=== PATIENT | female | born 1980 | race African-American/Black ===

== ENCOUNTER 2022-08-22 10:03 | Inpatient (IN) ==
[2022-08-22] MEDS ORDERED: GI COCKTAIL ED USE PO ONE ×2 (10:55→15:52)
--- NOTE | 2022-08-22 10:58 | Emergency Department Note ---
Impression & Plan Choledocholithiasis, Transaminitis, Elevated bilirubin ED Provider Note NAME: SHERMAN DAVIDSON AGE: 41 SEX: F : 1980 ARRIVES VIA: Walk-In INFORMANT: Patient ED PROVIDER(S): Madi Toussaint DO CHIEF COMPLAINT: Epigastric abdominal pain HPI: Patient is a 41-year-old female who presents to the ER for epigastric abdominal pain associated with nausea and vomiting. This has been going on for the past 10 days. She notes when her reflux is really bad she vomits. When she eats she will vomit. She denies any chest pain or shortness of breath. No dysuria, urgency, or frequency. No other exacerbating or remitting factors. PAST MEDICAL HISTORY:See Below PAST SURGICAL HISTORY:See Below FAMILY HISTORY:See Below SOCIAL HISTORY:See Below HOME MEDICATIONS:See Below ALLERGIES:See Below VITALS:See Below PHYSICAL EXAMINATION: GENERAL: Sitting up in bed, alert, well appearing, well nourished, no distress, non-toxic EYE EXAM: normal conjunctiva. OROPHARYNX: no exudate, no erythema, lips, buccal mucosa, and tongue normal and mucous membranes are moist NECK: supple, no nuchal rigidity, no adenopathy, non-tender LUNGS: Clear to auscultation. Normal chest wall mechanics HEART: no murmurs, S1 normal and S2 normal ABDOMEN: abdomen soft, TTP in RUQ, normo-active bowel sounds, no masses, no rebound or guarding. UPPER EXTREMITIES: upper extremities are grossly normal. LOWER EXTREMITIES: No pitting edema. NEURO EXAM: Normal sensorium, cranial nerves II-XII grossly intact, normal speech, no gross weakness of arms, no gross weakness of legs. MEDICAL DECISION MAKING: Patient is a 41-year-old female who presents ER for epigastric abdominal pain rating to the right. Associate with nausea vomiting with eating. IV was established blood work was obtained. She was tender on exam. Labs show no significant leukocytosis and mild anemia 11.2. BMP was unremarkable. LFTs with a transaminitis with an ALT of 190 and AST of 67. T. bili at 1.3. Lipase was normal. Ultrasound was obtained and showed mild intra and extrahepatic biliary ductal dilation with a CBD of 1 cm and cholelithiasis and gallbladder wall thickening. With these findings I recommended admission to the hospitalist. Patient declined. Discussed the risk and benefits and she declined following in formed refusal of care. Discussed with Jolynn Glasgow from [facility] gastroenterology. She discussed with Dr. Puentes. They would be able to take her to the OR tomorrow for an EDG but again the patient declined. She was agreeable to following up as an outpatient. She notes that she cannot stay as s he has a total of 5 children and no one to watch them. She was agreeable to getting IV antibiotics and was given 2 g of Rocephin here. She was discharged with Cipro and Flagyl. External records were reviewed which showed a CBD previously of 4 mm in epic. Gastroenterology will contact her as an outpatient try to get her in as an outpatient for an EGD. If she changes her mind at any point she will return to the ED. She was discharged following informed refusal of care due to lack of childcare. Triage Nursing notes reviewed. Limited review of prior medical records performed Vital Signs: reviewed and remarkable for no significant abnormalities Differential diagnosis: Differential diagnoses includes but is not limited to gastritis, peptic ulcer disease, GERD, gallbladder disease, pancreatitis, small bowel obstruction, appendicitis, diverticulitis, hernia, urinary tract infection, torsion, perforation, trauma, infectious. ER treatment provided: See below Diagnostics interpreted by me include EKG and cardiac monitoring as listed below: -ECG: none -Laboratory studies:Interpreted by me as stated above in MDM and shown below. Imaging studies: Xrays: As interpreted by me:none CTs show: none US: Shows thickening of the gallbladder wall and cholelithiasis and dilation of the CBD as described above Consultation(s): Discussed with gastroenterology as described above. Also discussed with care managers and hospitalist initially in regards to admission and patient declined Procedures:none Critical Care: None Past Med/Surg History Social History Feels Safe at Home: Yes Allergies Allergies Allergy/AdvReac Type Severity Reaction Status Date / Time No Known Allergies Allergy Unverified 08/22/22 16:03 Home Meds Home Medications Medication Instructions Recorded Confirmed famotidine 20 mg tablet 20 mg PO BID 08/22/22 08/22/22 Previous Rx's Medication Instructions Recorded ciprofloxacin HCl 500 mg tablet 500 mg PO Q12H #20 tabs 08/22/22 (Cipro) metronidazole 500 mg tablet 500 mg PO TID #30 tabs 08/22/22 ondansetron 4 mg disintegrating 4 mg PO Q8H PRN nausea and 08/22/22 tablet vomiting 5 days #15 tabs Results & Data (ED) Vital Signs Vital Signs - 24 hr 08/22/22 10:06 Temperature 36.7 C Temperature Source Temporal Artery Scan Pulse Rate 80 Respiratory Rate 18 Blood Pressure 152/91 H Blood Pressure Mean 111 Pulse Oximetry 97 Sepsis Recent Fever Within 48 Hours No Sepsis New/Unexplained Change in Mental Status No Sepsis Action Taken by Nursing No Action Required Laboratory Data 08/22/22 11:35 08/22/22 11:35 Lab Results 08/22/22 08/22/22 Range/Units 11:35 11:35 WBC 5.04 (4.8-10.8) K/ul RBC 4.33 (4.20-5.40) M/uL Hgb 11.2 L (12.0-16.0) g/dl Hct 34.7 L (37.0-47.0) % MCV 80.1 (80.0-100.0) fL MCH 25.9 (25.0-34.0) pg MCHC 32.3 (32.0-36.0) g/dL RDW Std Deviation 46.3 (36.4-46.3) fL RDW Coeff of Preston 15.9 H (11.5-14.5) % Plt Count 305 (130-400) K/uL MPV 11.5 (9.4-12.4) fL Immature Gran % (Auto) 0.2 % Neut % (Auto) 51.0 % Lymph % (Auto) 35.3 % [place] % (Auto) 9.1 % Eos % (Auto) 3.8 % Baso % (Auto) 0.6 % Neut # (Auto) 2.57 (1.40-6.50) K/uL Lymph # (Auto) 1.78 (1.2-3.4) K/uL [place] # (Auto) 0.46 (0.11-0.59) K/uL Eos # (Auto) 0.19 (0-0.50) K/uL Baso # (Auto) 0.03 (0-0.2) K/uL Immature Gran # (Auto) 0.01 (0.01-0.20) K/uL Sodium 139 (136-145) mmol/L Potassium 3.7 (3.5-5.1) mmol/L Chloride 106 (98-107) mmol/L Carbon Dioxide 26 (21-32) mmol/L Anion Gap 7 (3-11) BUN 7 (6-23) mg/dl Creatinine 0.58 L (0.6-1.2) mg/dl Est Cr Clr Drug Dosing 156.4 ml/min Est GFR ( Amer) 130.8 ml/min Est GFR (Non-Af Amer) 112.9 ml/min BUN/Creatinine Ratio 12.1 (10-20) Glucose 95 (70-99(Fasting)) mg/dl Calcium 9.4 (8.5-10.1) mg/dl Total Bilirubin 1.3 H (0.2-1.0) mg/dl AST 64 H (13-39) U/L ALT 186 H (7-52) U/L Alkaline Phosphatase 297 H (34-104) U/L Total Protein 8.4 H (6.0-8.3) gm/dl Albumin 4.0 (3.4-5.0) gm/dl Globulin 4.4 H (2.5-4.0) gm/dl Albumin/Globulin Ratio 0.9 (0.9-2) Lipase 24 (11-82) U/L Administered Medications Discontinued Medications Al Hydrox/Mg Hydrox/Simethicone (Gi Cocktail Ed Use) 1 dose PO ONE ONE Stop: 08/22/22 10:56 Last Admin: 08/22/22 15:56 Dose: 1 dose Documented By: Al Hydrox/Mg Hydrox/Simethicone (Gi Cocktail Ed Use) Confirm Administered Dose 1 dose PO .STK-MED ONE Stop: 08/22/22 15:53 Last Admin: 08/22/22 15:56 Dose: Not Given Documented By: Imaging Data Radiologist's Impression: Gallbladder Ultrasound 08/22/22 10:55 US gallbladder CLINICAL HISTORY: Right upper quadrant abdominal pain. COMPARISON STUDY: No previous studies for comparison. FINDINGS: Liver parenchyma is slightly heterogeneous. No well-defined hepatic lesions are identified. There is mild intra and extra hepatic biliary ductal dilatation. The common bile duct measures 1 cm in caliber. No common bile duct calculi are identified by sonography. Pancreatic body is normal. Head and tail are partially obscured. Multiple gallstones within the gallbladder are noted. There is mild gallbladder wall thickening. No pericholecystic fluid is present. No sonographic Sage sign was elicited. IMPRESSION: 1. Mild intra and extrahepatic biliary ductal dilatation. Correlation with liver function tests is recommended. 2. Cholelithiasis and mild gallbladder wall thickening. No sonographic Sage sign. No convincing evidence for acute cholecystitis. If indicated, a hepatobiliary scan could be obtained. 3. Slight heterogeneity of the liver. ACT 112: Negative or not required by law. Electronically signed by: Ilan Curtis M.D. 08/22/2022 2:41 PM Discharge Plan Visit Data Chief Complaint: Abdominal Pain Stated Complaint: ABD PAIN ED Provider: Madi Toussaint Discharge Problem: Choledocholithiasis, Transaminitis, Elevated bilirubin Discharge Instructions Krames/Other Patient Handouts: ED Gallstones with Biliary Colic Activity Restrictions/Additional Instructions: Please follow up with your primary care doctor with in the next 24 hours. Any worsening of your symptoms, please return to the ED immediately. This includes any fevers greater than 100.4, worsening pain, chest pain, shortness breath, persistent nausea, vomiting, unable to eat or drink, or any other concerning signs or symptoms from your standpoint. You were found to have a blood pressure greater than 120 systolic over 90 diastolic. Due to the new Medicare guidelines, we are now recommending that you follow up with your primary care doctor in regards to this elevated blood pressure. We believe that you likely have a stone in the common bile duct causing dilation as well as elevation in your liver functions and bilirubin. This can easily get infected. You also have some inflammation of your gallbladder. We recommended admission for an ER PCP and possibly cholecystectomy. You declined. This can cause liver failure, disability and sepsis. If you change your mind at any point please return to the ER immediately for admission. Please take the antibiotics as prescribed. Again if you notice any fevers above 100.4, shaking chills, unable to eat or dri nk, yellow discoloring of your skin, eyes or under your tongue or change your mind at any point please return to the ER. Gastroenterology from [facility] will contact you hopefully tomorrow to set up an appointment for early next week. If you do not hear from them please call them first thing Friday morning if you do not return to the ER. Forms Stand Alone Forms: My [facility] Prescriptions Prescriptions: New metronidazole 500 mg tablet 500 mg PO TID Qty: 30 0RF ciprofloxacin HCl [Cipro] 500 mg tablet 500 mg PO Q12H Qty: 20 0RF ondansetron 4 mg tablet,disintegrating 4 mg PO Q8H PRN (Reason: nausea and vomiting) 5 Days Qty: 15 0RF No Action famotidine 20 mg Tablet 20 mg PO BID Referrals Referrals: Liliane Puentes DO [Physician] - PCP,NO [Physician] -
[2022-08-22 12:11] LABS: Basophils # (auto) 0.03 K/uL (0-0.2); Basophils % (auto) 0.6 %; Eosinophils # (auto) 0.19 K/uL (0-0.50); Eosinophils % (auto) 3.8 %; Hematocrit (blood only) 34.7 % (37.0-47.0); Hemoglobin 11.2 g/dl (12.0-16.0); Immature Granulocytes # (auto) 0.01 K/uL (0.01-0.20); Immature Granulocytes % (auto) 0.2 %; Lymphocytes # (auto) 1.78 K/uL (1.2-3.4); Lymphocytes % (auto) 35.3 %; Mean Corpuscular Hemoglobin 25.9 pg (25.0-34.0); Mean Corpuscular Hgb Conc 32.3 g/dL (32.0-36.0); Mean Corpuscular Volume 80.1 fL (80.0-100.0); Mean Platelet Volume 11.5 fL (9.4-12.4); Monocytes # (auto) 0.46 K/uL (0.11-0.59); Monocytes % (auto) 9.1 %; Neutrophils # (auto) 2.57 K/uL (1.40-6.50); Platelet Count 305 K/uL (130-400); RDW Coefficient of Variation 15.9 % (11.5-14.5); RDW Standard Deviation 46.3 fL (36.4-46.3); Red Blood Count 4.33 M/uL (4.20-5.40); White Blood Count 5.04 K/ul (4.8-10.8)
[2022-08-22 12:16] LABS: Albumin Globulin Ratio 0.9 (0.9-2); BUN Creatinine Ratio 12.1 (10-20); Bilirubin,Total 1.3 mg/dl (0.2-1.0); Calcium 9.4 mg/dl (8.5-10.1); Creatinine Clr Calc Pharmacy 156.4 ml/min; Est GFR (African American) 130.8 ml/min; Est GFR (Non-African American) 112.9 ml/min; Globulin 4.4 gm/dl (2.5-4.0); Potassium 3.7 mmol/L (3.5-5.1); Total Protein 8.4 gm/dl (6.0-8.3)
--- NOTE | 2022-08-22 14:43 | Ultrasound Report ---
US gallbladder CLINICAL HISTORY: Right upper quadrant abdominal pain. COMPARISON STUDY: No previous studies for comparison. FINDINGS: Liver parenchyma is slightly heterogeneous. No well-defined hepatic lesions are identified. There is mild intra and extra hepatic biliary ductal dilatation. The common bile duct measures 1 cm in caliber. No common bile duct calculi are identified by sonography. Pancreatic body is normal. Head and tail are partially obscured. Multiple gallstones within the gallbladder are noted. There is mild gallbladder wall thickening. No pericholecystic fluid is present. No sonographic Sage sign was jesus cited. IMPRESSION: 1. Mild intra and extrahepatic biliary ductal dilatation. Correlation with liver function tests is re commended. 2. Cholelithiasis and mild gallbladder wall thickening. No sonographic Sage sign. No convincing sanjeev dence for acute cholecystitis. If indicated, a hepatobiliary scan could be obtained. 3. Slight heterogeneity of the liver. ACT 112: Negative or not required by law. Electronically signed by: Ilan Curtis M.D. 08/22/2022 2:41 PM
[2022-08-22] MEDS ORDERED: cefTRIAXone SODIUM 2,000 MG/70 ML BAG IV STA (16:08)
--- NOTE | 2022-08-22 18:27 | Emergency Department Note ---
ED Visit Note This patient was seen by Dr. Toussaint, the patient was diagnosed with choledocholithiasis, the plan was for the patient to be admitted with GI and parks rgical consult. The patient reportedly had childcare issues not allowing her to be admitted. She did receive IV antibiotics. I was asked to get involved with the patient's care at 6:20 PM as the patient was able to find a land department head and now would like to be admitted. The case was discussed with the [facility] hospitalist who accept the patient for admission to Dr. Anderson Dispo changed to admit .
--- NOTE | 2022-08-22 18:28 | Communication Note ---
Date of Service: August 22, 2022 We were called by the ER concerning this 41 y/o female pt who presents with several days of nausea, vomiting, upper abd pain. Labs notable for elevated transaminases with AST 64, ALT 186, ALP 297, Tbili 1.3. She had no leukocytosis, normal PLT, lipase, stable chronic anemia with HGB 11.2, normal renal function, and electrolytes. She was afebrile and hemodynamically stable. US suggested cholelithiasis, with CBD of 1 cm and IHDD. Given her presentation this raises the concern for possible biliary stone disease. Recommendations were to admit the pt and we would anticipate arrange EUS/ERCP tomorrow. However, pt indicated she had several children at home to care for and no one to help her care for them in her absence, thus she was refusing admission on these grounds. Therefore will recommend that the pt be sent home on empiric ABX to cover biliary source, and we will look to arrange OP endoscopy likely next week in [place] as schedule permits. If the pt develops worsening symptoms, such as pain, fever, jaundice, etc - it was recommended she return to the ER for ongoing care before then. We will call her to make arrangements for OP endoscopy. Thank you for allowing us to participate in the care of this patient. I discussed this pt with my attending as well as the ER attending.
--- NOTE | 2022-08-22 18:54 | History & Physical Report ---
Date of Service August 22, 2022 Assessment & Plan (1) Choledocholithiasis: (2) Transaminitis: (3) Elevated bilirubin: (4) Anemia: (5) GERD (gastroesophageal reflux disease): Plan This is a 41-year-old -La[place] female who has significant past medical history of reflux who presents to ED secondary to abdominal pain, nausea and vomiting x1 week. Choledocholithiasis Transaminitis Hyperbilirubinemia US:Cholelithiasis and mild gallbladder wall thickening. Mild intra and extrahepatic biliary ductal dilatation CBD 1cm. AST 64, ALT 186, ALP 297, Tbili 1.3 afebrile, no leukocytosis Remain n.p.o. IV fluid As needed antiemetics and analgesia will cover with IV Zosyn for now Consult GI for EGD/EUS in a.m. Consult general surgery to determine if possibly needs cholecystectomy in future Anemia H&H 11.2 and 34.7 with normal indices Iron panel done as outpatient December 2021 revealed ferritin 58, TSAT 34, TIBC 363 and iron 124 Monitor H&H, recommend further work-up as outpatient GERD will place on IV Pepcid for now DVT PPX: SCDS Dispo: med/surg, NPO for EGD/EUS tomorrow FULL CODE PCP: PAUL Guadalupe Pt was seen and examined in collaboration with Dr. Anderson, please see addendum A total of 50 minutes were spent with greater than 50% of that time face to face with the patient, personally reviewing all current laboratories, imaging studies, past medication reconciliation, outpatient chart review, and discussion with specialists to collaborate care for the patient with attending. Please see attending documentation for corrections and/or additions. History of Present Illness Chief Complaint: Abdominal pain, nausea and vomiting x1 week Primary Care Provider: Levy Up MD This is a 41-year-old -Lao female who has significant past medical history of reflux who presents to ED secondary to abdominal pain, nausea and vomiting x1 week. Patient states over the last week she has had intermittent nausea and vomiting. She attributed this to her usual reflux however was much worse. She further complained of epigastric discomfort that radiated to her right upper quadrant. Pain would come and go, nothing made better or worse she has never experienced this before. She presented to ED today with her 2 children at bedside. She denies any recent fever, chills, sweats, lightheadedness, dizziness, chest pain, shortness breath, URI symptoms, hematemesis, diarrhea or melena. Her last bowel movement was 2 to 3 days ago. She denies any difficulty with urination. In ED patient was found to have a transaminitis with AST 64, ALT 186, ALP 297 and total bili of 1.3. She was afebrile and had no leukocytosis. Her lipase was WNL. She does have anemia at 11.2 and 34.7 with normal indices. Ultrasound suggested cholelithiasis with a CBD of 1 cm and I HDD which raise concern for possible choledocholithiasis. ED provider discussed with GI who recommended admission for EUS and ERCP. Initially patient declined due to having several children at home and unable to find childcare, but eventually she was able to find childcare and wished to be admitted. Allergies Allergy/AdvReac Type Severity Reaction Status Date / Time latex Allergy Rash Verified 08/23/22 01:17 Home Medications Medication Instructions Recorded Confirmed Type ciprofloxacin HCl 500 mg tablet 500 mg PO Q12H #20 tabs 08/22/22 Rx (Cipro) famotidine 20 mg tablet 20 mg PO BID 08/22/22 08/22/22 History metronidazole 500 mg tablet 500 mg PO TID #30 tabs 08/22/22 Rx ondansetron 4 mg disintegrating 4 mg PO Q8H PRN nausea and 08/22/22 Rx tablet vomiting 5 days #15 tabs Past Med/Surg History Medical History Anemia GERD (gastroesophageal reflux disease) Thyroid nodule following ENT, had bx, rec repeat in 6 month for US Surgical History Hx of section Family History Mother Diabetes Father Drug overdose Social History Smoking Status: Current every day smoker Tobacco Type: Cigarettes Cigarettes Per Day: 1/2 ppd; Hx Alcohol Use: No Hx Substance Use: No Preferred Language: Slovak Communication Ability: Effective Main [employer] Required: No Beliefs That Will Affect Care: None Current Living Situation: Family Current Living Situation Comment: lives with her two children Feels Safe at Home: Yes Review of Systems Review of Systems: All systems reviewed & are unremarkable except as noted in HPI & below Physical Exam Physical Exam: Please refer to Dr. Anderson addendum for physical exam findings. Results & Data Results & Data ([facility]) Vital Signs (Past 12 Hours) Vital Signs Temp Pulse Resp BP Pulse Ox 08/22/22 10:06 36.7 C 80 18 152/91 H 97 Diagnostic Findings Gallbladder Ultrasound 08/22/22 10:55 US gallbladder CLINICAL HISTORY: Right upper quadrant abdominal pain. COMPARISON STUDY: No previous studies for comparison. FINDINGS: Liver parenchyma is slightly heterogeneous. No well-defined hepatic lesions are identified. There is mild intra and extra hepatic biliary ductal dilatation. The common bile duct measures 1 cm in caliber. No common bile duct calculi are identified by sonography. Pancreatic body is normal. Head and tail are partially obscured. Multiple gallstones within the gallbladder are noted. There is mild gallbladder wall thickening. No pericholecystic fluid is present. No sonographic Sage sign was elicited. IMPRESSION: 1. Mild intra and extrahepatic biliary ductal dilatation. Correlation with liver function tests is recommended. 2. Cholelithiasis and mild gallbladder wall thickening. No sonographic Sage sign. No convincing evidence for acute cholecystitis. If indicated, a hepatobiliary scan could be obtained. 3. Slight heterogeneity of the liver. ACT 112: Negative or not required by law. Electronically signed by: Ilan Curtis M.D. 08/22/2022 2:41 PM Medications Administered Medication List Discontinued Medications Al Hydrox/Mg Hydrox/Simethicone (Gi Cocktail Ed Use) 1 dose PO ONE ONE Stop: 08/22/22 10:56 Last Admin: 08/22/22 15:56 Dose: 1 dose Documented By: HS Al Hydrox/Mg Hydrox/Simethicone (Gi Cocktail Ed Use) Confirm Administered Dose 1 dose PO .STK-MED ONE Stop: 08/22/22 15:53 Last Admin: 08/22/22 15:56 Dose: Not Given Documented By: HS Ceftriaxone Sodium (Rocephin) 2,000 mg in 70 mls @ 140 mls/hr IV NOW STA Stop: 08/22/22 16:37 Last Infusion: 08/22/22 17:23 Dose: 0 mls/hr Documented By: Admin: 08/22/22 16:30 Dose: 140 mls/hr Documented By: AB COVID-19 Results Results COVID-19 Adm Lab Results: RBC 4.33 M/uL (4.20-5.40) 08/22/22 WBC 5.04 K/ul (4.8-10.8) 08/22/22 Hgb 11.2 g/dl (12.0-16.0) L 08/22/22 Hct 34.7 % (37.0-47.0) L 08/22/22 Plt Count 305 K/uL (130-400) 08/22/22 Neutrophils (%) (Auto) 51.0 % 08/22/22 Lymphocytes (%) (Auto) 35.3 % 08/22/22 Monocytes # (Auto) 0.46 K/uL (0.11-0.59) 08/22/22 Eosinophils # (Auto) 0.19 K/uL (0-0.50) 08/22/22 Immature Granulocyte % (Auto) 0.2 % 08/22/22 Neutrophils # (Auto) 2.57 K/uL (1.40-6.50) 08/22/22 Lymphocytes # (Auto) 1.78 K/uL (1.2-3.4) 08/22/22 Monocytes # (Auto) 0.46 K/uL (0.11-0.59) 08/22/22 Eosinophils # (Auto) 0.19 K/uL (0-0.50) 08/22/22 Basophils # (Auto) 0.03 K/uL (0-0.2) 08/22/22 Immature Granulocyte # (Auto) 0.01 K/uL (0.01-0.20) 3 Na 139 mmol/L (136-145) 08/22/22 K 3.7 mmol/L (3.5-5.1) 08/22/22 Cl 106 mmol/L (98-107) 08/22/22 CO2 26 mmol/L (21-32) 08/22/22 Anion Gap 7 (3-11) 08/22/22 BUN 7 mg/dl (6-23) 08/22/22 Creatinine 0.58 mg/dl (0.6-1.2) L 08/22/22 BUN/Creatinine Ratio 12.1 (10-20) 08/22/22 Glucose Level 95 mg/dl (70-99(Fasting)) 08/22/22 Ca 9.4 mg/dl (8.5-10.1) 08/22/22 Total Bilirubin 1.3 mg/dl (0.2-1.0) H 08/22/22 AST/SGOT 64 U/L (13-39) H 08/22/22 ALT/SGPT 186 U/L (7-52) H 08/22/22 Alkaline Phosphatase 297 U/L (34-104) H 08/22/22 Total Protein 8.4 gm/dl (6.0-8.3) H 08/22/22 Albumin 4.0 gm/dl (3.4-5.0) 08/22/22 Globulin 4.4 gm/dl (2.5-4.0) H 08/22/22 Albumin/Globulin Ratio 0.9 (0.9-2) 08/22/22 SARS-CoV-2, RNA, NAAT NEGATIVE (NEGATIVE) 08/22/22 Chest X-Ray 08/22/22 Code Status & VTE Plan Code Status FULL CODE VTE Prophylaxis Plan VTE Prophylaxis will be ordered: Yes Supervising Physician Co-Signing Physician Notes Attending addendum: The patient was seen and examined in the emergency room She has only past medical history of GERD and has been complaining of right upper quadrant/epigastric discomfort for the last few days for the last few days She has not been able to eat or drink much for the same. Due to nausea and occasional vomiting There is no fever and no chills No chest pain, palpitation or shortness of breath On examination Sitting on a chair in the emergency room with moderate discomfort Afebrile and hemodynamically stable Chestclear to auscultate bilaterally HeartS1, S2 regular Abdomenmildly distended, soft, tender right upper quadrant, Sage sign was negative during examination, bowel sounds present Extremitiestrace edema bilateral Her admission labs, EKG and imaging studies reviewed Increased LFTs Hello main body how you probably Has dilatation of the biliary ducts with cholelithiasis without sonographic evidence of cholecystitis Likely has choledocholithiasis GI and surgery has been consulted and Zosyn has been started The patient will be kept n.p.o. Agree with assessment plan as outlined above by ADRIENNE Barnhart Dr
--- NOTE | 2022-08-22 19:32 | XRay Report ---
XR chest 1V portable HISTORY: Preop. Right upper quadrant pain. COMPARISON: None. FINDINGS: No pneumothorax. No pleural effusions. The lungs are clear. No evidence for pulmonary edema . The cardiac silhouette is top normal in size. This may be accentuated by the AP portable technique. No acute fractures identified. IMPRESSION: No acute process. ACT 112: Negative or not required by law. Electronically signed by: Simon Pitt M.D. 08/22/2022 7:30 PM
--- NOTE | 2022-08-22 20:14 | Surgery Consultation ---
Date of Consultation August 22, 2022 Assessment & Plan (1) Cholelithiasis: The patient is being admitted on the hospitalist service. Recommend proceeding as follows: Implement n.p.o. status Provide analgesics provide antiemetics Follow serial labs Continue antibiotics. The patient has received ceftriaxone thus far since arrival to the emergency department Provide IV fluid for hydration The patient's imaging and laboratories are concerning for possible choledocholithiasis. Therefore we recommend getting a gastroenterology consultation to see if they feel an MRCP or an ERCP is warranted. I did discuss the above plan with the patient and outlined with her that pending gastroenterology evaluation she may also be a candidate for cholecystectomy. We will await gastroenterology input and determination if any procedures will be performed and determine timing of cholecystectomy thereafter Supervising Physician Co-Signing Physician Notes Dr Marie- case discussed with Arturo Parker and studies reviewed agree with plan- likely lap ailyn at some point depending on other treatment plan History of Present Illness Reason for Consultation: Cholelithiasis History of Present Illness This is a 41-year-old female who presented to the [facility] emergency department secondary to symptomatology that has ongoing for 2 weeks. The patient notes that she has had a poor appetite along with nausea and vomiting. She also notes that she has had some epigastric and right upper quadr ant pain that is worse after eating. She denies any fevers, shakes, or chills. She notes that the pain does not radiate. She does note that the pain is somewhat alleviated after she vomits but will recur if she tries to eat again. She does not note any provocative factors other than eating. Patient notes that she has had very little in the way of oral intake over the past 5 days. As her symptomatology appears to be getting worse she did present to the emergency department. I asked the patient if she has had any prior surgeries and she had a in 2017. Since arrival to the hospital the patient has had labs and imaging which independent reviewed. A chest x-ray showed no evidence of pneumonia. A gallbladder ultrasound showed cholelithiasis with mild gallbladder wall thicke mayra. There is no overly convincing evidence of acute cholecystitis but the patient was noted to have biliary ductal dilatation. Labs include a CBC her white blood cell count and platelet count were normal. Her hemoglobin and hematocrit were 11.2 and 34.7 respectively. Chemistry profile showed sodium, potassium, and BUN were all normal. Her creatinine was nonelevated at 0.5. Patient was noted to have some elevation of her LFTs including a total bilirubin of 1.3, and AST of 64, ALT of 186, alkaline phosphatase of 297. Of note the patient's lipase was not elevated. An EKG was performed that showed sinus arrhythmia without any changes indicative of acute ischemia. At the time of my interview the patient was resting comfortably in bed and she was in no distress. Allergies Allergy/AdvReac Type Severity Reaction Status Date / Time No Known Allergies Allergy Unverified 08/22/22 16:03 Home Medications Medication Instructions Recorded Confirmed Type ciprofloxacin HCl 500 mg tablet 500 mg PO Q12H #20 tabs 08/22/22 Rx (Cipro) famotidine 20 mg tablet 20 mg PO BID 08/22/22 08/22/22 History metronidazole 500 mg tablet 500 mg PO TID #30 tabs 08/22/22 Rx ondansetron 4 mg disintegrating 4 mg PO Q8H PRN nausea and 08/22/22 Rx tablet vomiting 5 days #15 tabs Patient History Medical History Anemia GERD (gastroesophageal reflux disease) Thyroid nodule following ENT, had bx, rec repeat in 6 month for US Surgical History Hx of section Family History Mother Diabetes Father Drug overdose Social History Smoking Status: Current every day smoker Tobacco Type: Cigarettes Cigarettes Per Day: 10; Hx Alcohol Use: No Hx Substance Use: No Preferred Language: Moroccan Feels Safe at Home: Yes Review of Systems Constitutional: no fever and no chills Eyes: no diplopia Ear, Nose, Mouth, Throat: no ear pain Respiratory: no cough and no dyspnea Cardiovascular: no chest pain Gastrointestinal: as per Subjective / HPI Genitourinary: no dysuria Musculoskeletal: no back pain Integumentary: no rash Neurologic: no localized weakness Physical Exam Constitutional: WD/WN, vitals as above Eyes: + anicteric sclerae; no conjunctival abnormality ENMT: Ears: no hearing impairment and no external ear abnormality Mouth: no oropharynx abnormality Sublingual jaundice is absent Neck: trachea midline Respiratory: normal respiratory effort; no respiratory distress and no labored breathing Cardiovascular: Rate/Rhythm: regular rate and regular rhythm Vessels: dorsalis pedis pulses present and radial pulses present Gastrointestinal (Abdomen): Abdomen is soft, nonrigid, nondistended. There is no rebound tenderness or guarding. The patient did have pain with deep palpation in the epigastric area and right upper quadrant. Musculoskeletal: No calf tenderness Skin: no rashes Neurologic: moves all extremities Psychiatric: A+Ox3, euthymic affect Results & Data ([facility]) Vital Signs (Past 12 Hours) Vital Signs Temp Pulse Resp BP Pulse Ox 08/22/22 10:06 36.7 C 80 18 152/91 H 97 PG Care Time/CCT Total # of Minutes Spent Total Time Spent with Patient: Total time spent is greater than 50% in coordination of care (as documented) at patient's floor/unit and/or counseling patient: Coding Level of Care Code INP/OBS CONSULT LVL 5, 80 MIN Diagnoses Cholelithiasis K80.20
[2022-08-22 21:22] LABS: Appearance Urine Cloudy (Clear); Blood Urine 3+ (Negative); Color Urine Dark Yellow; Epithelial Cell Urine Auto >30 /lpf (0-5); Glucose Urine UA Negative (Negative); Ketones Urine 3+ (Negative); Leukocyte Esterase Urine Trace (Negative); Nitrite Urine Positive (Negative); Protein Urine 1+ (Negative); RBC Urine Automated 0-4 /hpf (0-4); Urobilinogen Urine Negative (Negative)
[2022-08-22 21:28] LABS: Bilirubin Urine 2+ (Negative)
[2022-08-22 21:32] LABS: Pregnancy Test, Serum Negative (Negative)
[2022-08-22 21:39] LABS: Mucus Urine Present (None Prsent)
[2022-08-22 21:40] LABS: Bacteria Urine Automated 1+ (Negative)
[2022-08-22] MEDS ORDERED: FAMOTIDINE 20 MG TAB PO SCH ×2 (22:25)
[2022-08-22] MEDS ORDERED: ACETAMINOPHEN 325 MG TAB PO PRN (22:25)
[2022-08-22] MEDS ORDERED: MAGNESIUM HYDROXIDE SUSP 30 ML UDC PO PRN (22:25)
[2022-08-22] MEDS ORDERED: POLYETHYLENE (MIRALAX) 17 GM PACK PO PRN (22:25)
[2022-08-22] MEDS ORDERED: oxyCODONE HCL IR 5 MG TAB (IMMEDIATE RELEASE) PO PRN (22:25)
[2022-08-22] MEDS ORDERED: ALUMINUM/MAGNESIUM SUSP 30 ML UDC PO PRN (22:25)
[2022-08-22] MEDS ORDERED: MoRPHine SULFATE 4 MG/ML 1 ML CARP\\VIAL IV PRN (22:25)
[2022-08-22] MEDS ORDERED: ONDANSETRON INJ 2 MG/ML 2 ML VIAL IV PRN (22:25)
[2022-08-22] MEDS ORDERED: PIPERACILLIN/TAZOBACTAM 4.5 GM in DEXTROSE 5% 100 ML IV ONE (22:30)
[2022-08-22] MEDS ORDERED: NSS + 20MEQ KCL 20 MEQ/1,000 ML BAG IV SCH (22:45)
[2022-08-22] MEDS: FAMOTIDINE 20 MG in SYRINGE 3 ML IV SCH (22:52)
[2022-08-23] MEDS: PIPERACILLIN/TAZOBACTAM 4.5 GM in DEXTROSE 5% 100 ML IV SCH ×3 (04:22→19:50)
--- NOTE | 2022-08-23 06:57 | Surgery Progress Note ---
Date of Service August 23, 2022 Assessment & Plan (1) Cholelithiasis: Plan: Dilated common bile duct Patient for GI evaluation possible ERCP At some point she will need a laparoscopic cholecystectomy Keep n.p.o. and on IV antibiotics for now We will finalize plan this a.m. Admission and Anticipated Discharge Date Admission Date: August 22, 2022 Subjective Patient's vital signs are stable She has had some mild pain and received some pain medication Review of Systems Review of Systems: All systems reviewed & are unremarkable except as noted in HPI & below Physical Exam Constitutional: well developed; no acute distress Eyes: + anicteric sclerae Respiratory: normal respiratory effort; no respiratory distress Cardiovascular: Rate/Rhythm: regular rate Gastrointestinal (Abdomen): Inspection/Auscultation: abdomen not distended Musculoskeletal: Head/Neck/Chest: head atraumatic Skin: no rashes, warm and dry Neurologic: awake Psychiatric: Orientation: alert Results & Data ([facility]) Vital Signs (Past 12 Hours) Vital Signs Temp Pulse Pulse Resp BP Pulse Ox O2 Del Method 08/22/22 22:45 Room Air 08/22/22 22:45 36.7 C 78 16 166/98 H 94 Room Air 08/22/22 22:00 63 18 132/92 97 Room Air 08/22/22 20:29 62 16 126/82 98 Room Air 08/22/22 19:58 70 16 137/101 H 99 Room Air PG Care Time/CCT Total # of Minutes Spent Total Time Spent with Patient: Total time spent is greater than 50% in coordination of care (as documented) at patient's floor/unit and/or counseling patient: Coding Level of Care Code 23930 SUB INP/OBS CARE 2/35MIN Diagnoses Cholelithiasis K80.20
[2022-08-23] MEDS: LACTATED RINGER'S 1,000 ML IV SCH ×3 (07:21→23:43)
[2022-08-23] MEDS: FAMOTIDINE 20 MG in SYRINGE 3 ML IV SCH ×2 (07:23→18:23)
--- NOTE | 2022-08-23 08:18 | Gastrointestinal Consultation ---
Date of Consultation August 23, 2022 Assessment & Plan (1) Cholelithiasis: (2) Transaminitis: (3) Dilated cbd, acquired: Plan This is a 41 y/o female with 1.5 weeks of worsening epigastric abd pain, n/v, found to have elevated LFTs, bilirubin, imaging suggestive of cholelithiasis, dilated CBD. Given her history, labs and imaging this is suspicious for underlying choledocholithiasis. On exam she is resting comfortably with a soft abd but has mild epigastric tenderness. - Keep NPO - Continue IV ABX - Continue IVF - Continue analgesia PRN - Continue antiemetics PRN - Trend LFTs - Appreciate general surgery consult to consider cholecystectomy - We will plan for ERCP today to evaluate for presence of choledocholithiasis and provide treatment as needed Thank you for allowing us to participate in the care of this patient. Please call with any acute changes, questions or concerns. Please see addendum below with additional recommendation from my supervising physician. Supervising Physician Co-Signing Physician Notes Saw and evaluated the patient, we were consulted for evaluation signs in the setting of epigastric discomfort. The patient did have imaging notable for cholelithiasis and a dilated common bile duct. She notes that she has had intermittent discomfort over 1.5 weeks. She denies having any fevers chills or sweats. The patient's prior surgical history is notable for hysterectomy but otherwise unremarkable. Physical examination no scleral icterus Right upper quadrant tenderness to palpation 41-year-old female presenting with abdominal pain, imaging is somewhat sugges tive of choledocholithiasis given the dilated common bile duct. We will proceed with upper endoscopy endoscopic ultrasound and likely ERCP for biliary decompression. This will then be followed by cholecystectomy with Dr. Marie. I discussed risks and benefits of the endoscopic procedures to include bleeding, infection, perforation, pain, failed biliary cannulation and need for follow-up studies. History of Present Illness Reason for Consultation: Choledocho Requesting Physician: Mariela Tay PA-C Attending Physician: Bin Cohen MD History of Present Illness This is a 41 y/o female with h/o GERD who presented to the ER last night for epigastric pain, n/v x 10 days that worsened. Labs significant for elevated tbili, transaminases and ALP, normal WBC of 5, stable HGB of 11.2, normal lipase. US ABD showed CBD of 1 cm, cholelithiasis with mild GB wall thickening, mild IHDD. It was offered to her to have admission and arrange ERCP today alejandra parrish pt initially refused stating she had to leave to care for her children. 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 Was put on IV ABX, fluids, and IV Pepcid, analgesia PRN. General surgery was contacted to consider cholecystectomy. Overnight pt remains afebrile. Pain is improved this AM but is there to a small extent. No GI output but she is passing flatus. She states pain began about 1.5 weeks ago; would be epigastric and burning - intermittent, not necessarily after eating but often would be postprandial along with nausea, vomiting. Appetite has been poor as a result and she really hasn't eaten much in 5 days; no real stool output either. Notes her urine has been dark since this started. The pain worsened and she came to the ER. Denies radiation of the pain to the back, no CP, SOB, hematemesis, melena, hematochezia, lazaro stools, jaundice, icterus, leg edema. No h/o RYGB. She smokes cigarettes. No ETOH or AC use. Uses NSAIDs sporadically if needed. Abd surg hx includes . Allergies Allergy/AdvReac Type Severity Reaction Status Date / Time latex Allergy Rash Verified 08/23/22 01:17 Home Medications Medication Instructions Recorded Confirmed Type ciprofloxacin HCl 500 mg tablet 500 mg PO Q12H #20 tabs 08/22/22 Rx (Cipro) famotidine 20 mg tablet 20 mg PO BID 08/22/22 08/22/22 History metronidazole 500 mg tablet 500 mg PO TID #30 tabs 08/22/22 Rx ondansetron 4 mg disintegrating 4 mg PO Q8H PRN nausea and 08/22/22 Rx tablet vomiting 5 days #15 tabs Patient History Medical History Anemia GERD (gastroesophageal reflux disease) Thyroid nodule following ENT, had bx, rec repeat in 6 month for US Surgical History Hx of section Family History Mother Diabetes Father Drug overdose Social History Smoking Status: Current every day smoker Tobacco Type: Cigarettes Cigarettes Per Day: 1/2 ppd; Hx Alcohol Use: No Hx Substance Use: No Preferred Language: Upper Sorbian Communication Ability: Effective Cardiac Cath Technologist Required: No Beliefs That Will Affect Care: None Current Living Situation: Family Current Living Situation Comment: lives with her two children Feels Safe at Home: Yes Assistive Devices: None Review of Systems Review of Systems: All systems reviewed & are unremarkable except as noted in HPI & below Physical Exam Constitutional: well developed, well nourished and comfortable; no acute distress Eyes: Sclera anicteric, no conjunctival injection ENMT: moist mucous membranes, no pallor Neck: trachea midline supple Respiratory: normal respiratory effort, lungs clear to auscultation Cardiovascular: RRR, no murmur, no edema Gastrointestinal (Abdomen): Inspection/Auscultation: abdomen normal to inspection and normal bowel sounds; abdomen not distended abd soft, mild TTP epigatric area, no rebound, guarding Skin: no rashes, warm and dry Neurologic: alert and oriented x 3, no obvious focal neuro deficit Psychiatric: normal mood and affect Results & Data ([facility]) Vital Signs (Past 12 Hours) Vital Signs Temp Pulse Pulse Resp BP Pulse Ox O2 Del Method 08/23/22 07:51 37.0 C 72 18 142/84 H 96 Room Air 08/22/22 22:45 Room Air 08/22/22 22:45 36.7 C 78 16 166/98 H 94 Room Air 08/22/22 22:00 63 18 132/92 97 Room Air 08/22/22 20:29 62 16 126/82 98 Room Air Laboratory Results 08/22/22 08/22/22 08/22/22 Range/Units 21:10 21:00 20:30 WBC (4.8-10.8) K/ul RBC (4.20-5.40) M/uL Hgb (12.0-16.0) g/dl Hct (37.0-47.0) % MCV (80.0-100.0) fL MCH (25.0-34.0) pg MCHC (32.0-36.0) g/dL RDW Std Deviation (36.4-46.3) fL RDW Coeff of [place] (11.5-14.5) % Plt Count (130-400) K/uL MPV (9.4-12.4) fL Immature Gran % (Auto) % Neut % (Auto) % Lymph % (Auto) % [place] % (Auto) % Eos % (Auto) % Baso % (Auto) % Neut # (Auto) (1.40-6.50) K/uL Lymph # (Auto) (1.2-3.4) K/uL [place] # (Auto) (0.11-0.59) K/uL Eos # (Auto) (0-0.50) K/uL Baso # (Auto) (0-0.2) K/uL Immature Gran # (Auto) (0.01-0.20) K/uL Sodium (136-145) mmol/L Potassium (3.5-5.1) mmol/L Chloride (98-107) mmol/L Carbon Dioxide (21-32) mmol/L Anion Gap (3-11) BUN (6-23) mg/dl Creatinine (0.6-1.2) mg/dl Est Cr Clr Drug Dosing ml/min Est GFR ( Amer) ml/min Est GFR (Non-Af Amer) ml/min BUN/Creatinine Ratio (10-20) Glucose (70-99(Fasting)) mg/dl Calcium (8.5-10.1) mg/dl Total Bilirubin (0.2-1.0) mg/dl AST (13-39) U/L ALT (7-52) U/L Alkaline Phosphatase (34-104) U/L Total Protein (6.0-8.3) gm/dl Albumin (3.4-5.0) gm/dl Globulin (2.5-4.0) gm/dl Albumin/Globulin Ratio (0.9-2) Lipase (11-82) U/L HCG, Qual Negative (Negative) Urine Color Dark Yellow Urine Appearance Cloudy A (Clear) Urine pH 6.0 (4.5-7.5) Ur Specific [place] 1.040 H (1.000-1.030) Urine Protein 1+ H (Negative) Urine Glucose (UA) Negative (Negative) Urine Ketones 3+ H (Negative) Urine Blood 3+ H (Negative) Urine Nitrite Positive A (Negative) Urine Bilirubin 2+ H (Negative) Urine Urobilinogen Negative (Negative) Ur Leukocyte Esterase Trace H (Negative) Urine WBC (Auto) 1-5 (0-5) /hpf Urine RBC (Auto) 0-4 (0-4) /hpf U Hyaline Cast (Auto) 1-5 (0-5) /lpf U Epithel Cells (Auto) >30 H (0-5) /lpf Urine Bacteria (Auto) 1+ H (Negative) Urine Mucus Present A (None Prsent) Urine Yeast Not Reportable SARS-CoV-2, RNA, NAAT NEGATIVE (NEGATIVE) 08/22/22 08/22/22 Range/Units 11:35 11:35 WBC 5.04 (4.8-10.8) K/ul RBC 4.33 (4.20-5.40) M/uL Hgb 11.2 L (12.0-16.0) g/dl Hct 34.7 L (37.0-47.0) % MCV 80.1 (80.0-100.0) fL MCH 25.9 (25.0-34.0) pg MCHC 32.3 (32.0-36.0) g/dL RDW Std Deviation 46.3 (36.4-46.3) fL RDW Coeff of [place] 15.9 H (11.5-14.5) % Plt Count 305 (130-400) K/uL MPV 11.5 (9.4-12.4) fL Immature Gran % (Auto) 0.2 % Neut % (Auto) 51.0 % Lymph % (Auto) 35.3 % [place] % (Auto) 9.1 % Eos % (Auto) 3.8 % Baso % (Auto) 0.6 % Neut # (Auto) 2.57 (1.40-6.50) K/uL Lymph # (Auto) 1.78 (1.2-3.4) K/uL [place] # (Auto) 0.46 (0.11-0.59) K/uL Eos # (Auto) 0.19 (0-0.50) K/uL Baso # (Auto) 0.03 (0-0.2) K/uL Immature Gran # (Auto) 0.01 (0.01-0.20) K/uL Sodium 139 (136-145) mmol/L Potassium 3.7 (3.5-5.1) mmol/L Chloride 106 (98-107) mmol/L Carbon Dioxide 26 (21-32) mmol/L Anion Gap 7 (3-11) BUN 7 (6-23) mg/dl Creatinine 0.58 L (0.6-1.2) mg/dl Est Cr Clr Drug Dosing 156.4 ml/min Est GFR ( Amer) 130.8 ml/min Est GFR (Non-Af Amer) 112.9 ml/min BUN/Creatinine Ratio 12.1 (10-20) Glucose 95 (70-99(Fasting)) mg/dl Calcium 9.4 (8.5-10.1) mg/dl Total Bilirubin 1.3 H (0.2-1.0) mg/dl AST 64 H (13-39) U/L ALT 186 H (7-52) U/L Alkaline Phosphatase 297 H (34-104) U/L Total Protein 8.4 H (6.0-8.3) gm/dl Albumin 4.0 (3.4-5.0) gm/dl Globulin 4.4 H (2.5-4.0) gm/dl Albumin/Globulin Ratio 0.9 (0.9-2) Lipase 24 (11-82) U/L HCG, Qual (Negative) Urine Color Urine Appearance (Clear) Urine pH (4.5-7.5) Ur Specific [place] (1.000-1.030) Urine Protein (Negative) Urine Glucose (UA) (Negative) Urine Ketones (Negative) Urine Blood (Negative) Urine Nitrite (Negative) Urine Bilirubin (Negative) Urine Urobilinogen (Negative) Ur Leukocyte Esterase (Negative) Urine WBC (Auto) (0-5) /hpf Urine RBC (Auto) (0-4) /hpf U Hyaline Cast (Auto) (0-5) /lpf U Epithel Cells (Auto) (0-5) /lpf Urine Bacteria (Auto) (Negative) Urine Mucus (None Prsent) Urine Yeast SARS-CoV-2, RNA, NAAT (NEGATIVE) Diagnostic Findings US Gallbladder: FINDINGS: Liver parenchyma is slightly heterogeneous. No well-defined hepatic lesions are identified. There is mild intra and extra hepatic biliary ductal dilatation. The common bile duct measures 1 cm in caliber. No common bile duct calculi are identified by sonography. Pancreatic body is normal. Head and tail are partially obscured. Multiple gallstones within the gallbladder are noted. There is mild gallbladder wall thickening. No pericholecystic fluid is present. No sonographic Sage sign was elicited. IMPRESSION: 1. Mild intra and extrahepatic biliary ductal dilatation. Correlation with liver function tests is recommended. 2. Cholelithiasis and mild gallbladder wall thickening. No sonographic Sage sign. No convincing evidence for acute cholecystitis. If indicated, a hepatobiliary scan could be obtained. 3. Slight heterogeneity of the liver. CXR: FINDINGS: No pneumothorax. No pleural effusions. The lungs are clear. No evidence for pulmonary edema. The cardiac silhouette is top normal in size. This may be accentuated by the AP portable technique. No acute fractures identified. IMPRESSION: No acute process.
--- NOTE | 2022-08-23 08:43 | Electrocardiogram Report ---
Test Reason : Blood Pressure : / mmHG Vent. Rate : 061 BPM Atrial Rate : 061 BPM P-R Int : 156 ms QRS Dur : 096 ms QT Int : 430 ms P-R-T Axes : 028 044 033 degrees QTc Int : 432 ms Poor data quality, interpretation may be adversely affected Normal sinus rhythm with sinus arrhythmia Normal ECG No previous ECGs available Confirmed by Bg Mon ([id number]) on 08/23/2022 8:42:53 AM Referred By: REFERRED SELF Confirmed By:Bg Mon
[2022-08-23 08:49] LABS: Basophils # (auto) 0.02 K/uL (0-0.2); Basophils % (auto) 0.5 %; Eosinophils # (auto) 0.15 K/uL (0-0.50); Eosinophils % (auto) 3.5 %; Hematocrit (blood only) 32.8 % (37.0-47.0); Hemoglobin 10.5 g/dl (12.0-16.0); Immature Granulocytes # (auto) 0.01 K/uL (0.01-0.20); Immature Granulocytes % (auto) 0.2 %; Lymphocytes % (auto) 34.6 %; Mean Corpuscular Hemoglobin 25.7 pg (25.0-34.0); Mean Corpuscular Volume 80.4 fL (80.0-100.0); Mean Platelet Volume 11.6 fL (9.4-12.4); Monocytes # (auto) 0.44 K/uL (0.11-0.59); Monocytes % (auto) 10.1 %; Neutrophils # (auto) 2.22 K/uL (1.40-6.50); Neutrophils % (auto) 51.1 %; Platelet Count 286 K/uL (130-400); RDW Coefficient of Variation 15.9 % (11.5-14.5); RDW Standard Deviation 46.5 fL (36.4-46.3); Red Blood Count 4.08 M/uL (4.20-5.40); White Blood Count 4.34 K/ul (4.8-10.8)
--- NOTE | 2022-08-23 11:36 | History & Physical Bridge Note ---
Date of Service August 23, 2022 History & Physical Bridge Note I have examined the patient, reviewed the History & Physical and in the interval since the performance of the History & Physical I have noted the following changes of clinical significance: no changes noted for laparoscopic cholecystectomy
--- NOTE | 2022-08-23 13:06 | Anesthesiology Consultation ---
Date of Service August 23, 2022 History Surgery Operation Date: 08/23/22 07:00 Proposed Procedures p Laparoscopic Cholecystectomy - Levy Marie MD, FACS s Endoscopic Retrograde Cholangiopancreato - Liliane Puentes, Height/Weight Height: 5 ft 4 in Weight: 115.1 kg Allergies Allergy/AdvReac Type Severity Reaction Status Date / Time latex Allergy Rash Verified 08/23/22 01:17 Medications Home Medications Medication Instructions Recorded Confirmed Last Taken ciprofloxacin HCl 500 mg tablet 500 mg PO Q12H #20 tabs 08/22/22 Unknown (Cipro) famotidine 20 mg tablet 20 mg PO BID 08/22/22 08/22/22 08/21/22 metronidazole 500 mg tablet 500 mg PO TID #30 tabs 08/22/22 Unknown ondansetron 4 mg disintegrating 4 mg PO Q8H PRN nausea and 08/22/22 Unknown tablet vomiting 5 days #15 tabs Active Medications Generic Name Dose Route Start Last Admin Trade Name Freq PRN Reason Stop Dose Admin Piperacillin Sod/Tazobactam 120 mls @ 30 mls/hr 08/23/22 04:00 08/23/22 11:36 Sod 4.5 gm/ Dextrose IV 09/02/22 03:59 30 mls/hr Q8H HANSEL Administration Protocol Lactated Ringer's 1,000 mls @ 125 mls/hr 08/23/22 06:45 08/23/22 07:21 Lr IV 09/22/22 06:44 125 mls/hr .Q8H HANSEL Administration Famotidine 20 mg/ Syringe 5 mls @ 2.5 mls/min 08/22/22 22:25 08/23/22 07:23 IV 09/21/22 22:24 2.5 mls/min Q12 HANSEL Administration NPO Date Last Intake of Fluids: 08/22/22 Time Last Intake of Fluids: 08:30 Date Last Intake of Solids: 08/22/22 Time Last Intake of Solids: 08:30 Past Medical History Medical History Anemia GERD (gastroesophageal reflux disease) Thyroid nodule following ENT, had bx, rec repeat in 6 month for US Past Family History Family History Mother Diabetes Father Drug overdose Past Surgical History Surgical History Hx of section Social History Smoking Status: Current every day smoker tobacco type: cigarettes Smoking cigarettes per day: 1/2 ppd Hx Alcohol Use: No Hx Substance Use: No Physical Exam Vital Signs Last Vital Signs Temp 37 C 08/23/22 12:34 Pulse 79 08/23/22 12:34 Resp 20 08/23/22 12:34 BP 152/96 H 08/23/22 12:34 Pulse Ox 99 08/23/22 12:34 O2 Del Method 08/23/22 12:34 Testing Laboratory Results 08/23/22 08:09 08/22/22 11:35 Urine Color Dark Yellow 08/22/22 21:10 Urine Appearance Cloudy (Clear) A 08/22/22 21:10 Urine pH 6.0 (4.5-7.5) 08/22/22 21:10 Ur Specific [place] 1.040 (1.000-1.030) H 08/22/22 21:10 Urine Protein 1+ (Negative) H 08/22/22 21:10 Urine Glucose (UA) Negative (Negative) 08/22/22 21:10 Urine Ketones 3+ (Negative) H 08/22/22 21:10 Urine Nitrite Positive (Negative) A 08/22/22 21:10 Ur Leukocyte Esterase Trace (Negative) H 08/22/22 21:10 Urine WBC (Auto) 1-5 /hpf (0-5) 08/22/22 21:10 Urine RBC (Auto) 0-4 /hpf (0-4) 08/22/22 21:10 U Hyaline Cast (Auto) 1-5 /lpf (0-5) 08/22/22 21:10 U Epithel Cells (Auto) >30 /lpf (0-5) H 08/22/22 21:10 Urine Bacteria (Auto) 1+ (Negative) H 08/22/22 21:10
[2022-08-23] MEDS ORDERED: ePHEDrine sulfate 50 MG/ML AMP IV PRN (13:11)
[2022-08-23] MEDS ORDERED: BUPIVACAINE 0.5 % 5 MG/1 ML MPF 30ML VIAL ONE (13:11)
[2022-08-23] MEDS ORDERED: ONDANSETRON INJ 2 MG/ML 2 ML VIAL IV PRN ×2 (13:11→17:14)
[2022-08-23] MEDS ORDERED: MEPERIDINE HCL 25 MG/ML CARP/VIAL IV PRN (13:11)
[2022-08-23] MEDS ORDERED: HYDROmorphone INJ 2 MG/ML SYR/VIAL IV PRN (13:11)
[2022-08-23] MEDS ORDERED: ATROPINE SULFATE 0.1 MG/ML 10ML SYR IV PRN (13:11)
[2022-08-23] MEDS ORDERED: PROMETHAZINE HCL 12.5 MG in SODIUM CHLORIDE 0.9% 50 ML IV PRN ×2 (13:11→17:14)
[2022-08-23] MEDS ORDERED: ROCURONIUM BROMIDE 10 MG/ML 5 ML VIAL IV ONE ×2 (13:12→15:01)
[2022-08-23] MEDS ORDERED: PROPOFOL IV EMULSION 10 MG/ML 20 ML VIAL IV ONE (13:12)
[2022-08-23] MEDS ORDERED: LIDOCAINE 2% MPF LOCAL 5 ML VIAL INFIL ONE (13:12)
[2022-08-23] MEDS ORDERED: fentaNYL citrate 100 MCG/2 ML VIAL ONE ×4 (13:12→15:21)
[2022-08-23] MEDS ORDERED: MIDAZOLAM HCL 1 MG/ML 2ML VIAL ONE (13:13)
[2022-08-23] MEDS ORDERED: ACETAMINOPHEN 1,000 MG/100 ML VIAL IV STA (13:19)
--- NOTE | 2022-08-23 13:58 | GI REPORT ---
Patient Name: Coral Aleman Procedure Date: 08/23/2022 1:49 PM Date of : 1980 Admit Type: Inpatient Age: 41 Gender: Female Attending MD: Liliane Puentes DO, Procedure: Upper GI endoscopy Providers: Liliane Puentes DO Referring MD: Bin Cohen Indications: Epigastric abdominal pain Medicines: General Anesthesia Complications: No immediate complications. Estimated blood loss: Minimal. Estimated Blood Loss: Estimated blood loss was minimal. Procedure: Pre-Anesthesia Assessment: - Prior to the procedure, a History and Physical was performed, and patient medications, allergies and sensitivities were reviewed. The patient's tolerance of previous anesthesia was reviewed. - The risks and benefits of the procedure and the sedation options and risks were discussed with the patient. All questions were answered and informed consent was obtained. - Patient identification and proposed procedure were verified prior to the procedure by the physician, the nurse and the shove up. The procedure was verified in the procedure room. - Pre-procedure physical examination revealed no contraindications to sedation. - ASA Grade Assessment: III - A patient with severe systemic disease. - After reviewing the risks and benefits, the patient was deemed in satisfactory condition to undergo the procedure. - The anesthesia plan was to use general anesthesia. - Immediately prior to administration of medications, the patient was re-assessed for adequacy to receive sedatives. - The heart rate, respiratory rate, oxygen saturations, blood pressure, adequacy of pulmonary ventilation, and response to care were monitored throughout the procedure. - The physical status of the patient was re-assessed after the procedure. After obtaining informed consent, the endoscope was passed under direct vision. Throughout the procedure, the patient's blood pressure, pulse, and oxygen saturations were monitored continuously. The Scope was introduced through the mouth, and advanced to the third part of duodenum. The upper GI endoscopy was accomplished without difficulty. The patient tolerated the procedure well. Findings: The examined esophagus was normal. The Z-line was regular and was found 36 cm from the incisors. The entire examined stomach was normal. The examined duodenum was normal. Impression: - Normal esophagus. - Z-line regular, 36 cm from the incisors. - Normal stomach. - Normal examined duodenum. - No specimens collected. Recommendation: - Perform an upper endoscopic ultrasound (UEUS) today. Liliane Puentes D.O. Liliane Puentes, 08/23/2022 1:58:18 PM This report has been signed electronically. Note Initiated On: 08/23/2022 1:49 PM Number of Addenda: 0 I attest to the content of the Intraoperative Record and orders documented therein, exceptions below {[id number]}
[2022-08-23] MEDS ORDERED: ONDANSETRON INJ 2 MG/ML 2 ML VIAL ONE (14:08)
[2022-08-23] MEDS ORDERED: DEXAMETHASONE SOD INJ 4 MG/ML VIAL ONE (14:08)
[2022-08-23] MEDS ORDERED: ePHEDrine sulfate 50 MG/ML AMP ONE (14:28)
--- NOTE | 2022-08-23 14:31 | GI REPORT ---
Patient Name: Coral Aleman Procedure Date: 08/23/2022 1:51 PM Date of : 1980 Admit Type: Inpatient Age: 41 Gender: Female Attending MD: Liliane Puentes DO, Procedure: Upper EUS Providers: Liliane Puentes DO Referring MD: Levy Borjas Indications: Elevated liver enzymes, Suspected choledocholithiasis Medicines: General Anesthesia Complications: No immediate complications. Estimated blood loss: Minimal. Estimated Blood Loss: Estimated blood loss was minimal. Procedure: Pre-Anesthesia Assessment: - Prior to the procedure, a History and Physical was performed, and patient medications, allergies and sensitivities were reviewed. The patient's tolerance of previous anesthesia was reviewed. - The risks and benefits of the procedure and the sedation options and risks were discussed with the patient. All questions were answered and informed consent was obtained. - Patient identification and proposed procedure were verified prior to the procedure by the physician, the nurse and the base filler. The procedure was verified in the procedure room. - Pre-procedure physical examination revealed no contraindications to sedation. - ASA Grade Assessment: III - A patient with severe systemic disease. - After reviewing the risks and benefits, the patient was deemed in satisfactory condition to undergo the procedure. - The anesthesia plan was to use general anesthesia. - Immediately prior to administration of medications, the patient was re-assessed for adequacy to receive sedatives. - The heart rate, respiratory rate, oxygen saturations, blood pressure, adequacy of pulmonary ventilation, and response to care were monitored throughout the procedure. - The physical status of the patient was re-assessed after the procedure. After obtaining informed consent, the endoscope was passed under direct vision. Throughout the procedure, the patient's blood pressure, pulse, and oxygen saturations were monitored continuously. The Scope was introduced through the mouth, and advanced to the second part of duodenum. The upper EUS was accomplished without difficulty. The patient tolerated the procedure well. Findings: ENDOSONOGRAPHIC FINDING: : There was no sign of significant endosonographic abnormality in the ampulla. No masses were identified. There was dilation in the common bile duct which measured up to 10 mm. Multiple stones were visualized endosonographically in the common bile duct. They were hyperechoic and characterized by shadowing. Multiple stones were visualized endosonographically in the gallbladder. They were hyperechoic. There was diffuse abnormal echotexture in the visualized portion of the liver. This was characterized by a hyperechoic appearance. There was no sign of significant endosonographic abnormality in the entire pancreas. No masses, the pancreatic duct was thin in caliber. There was no sign of significant endosonographic abnormality in the left adrenal gland. No adrenal gland enlargement was identified. One benign-appearing lymph node was visualized in the samantha hepatis region. It measured 12 mm by 18 mm in maximal cross-sectional diameter. The node was triangular, hypoechoic and had poorly defined margins. Impression: - There was no sign of significant pathology in the ampulla. - There was dilation in the common bile duct which measured up to 10 mm. - Multiple stones were visualized endosonographically in the common bile duct. - Multiple stones were visualized endosonographically in the gallbladder. - There was diffuse abnormal echotexture in the visualized portion of the liver. This was characterized by a hyperechoic appearance. - There was no sign of significant pathology in the entire pancreas. - Endosonographic images of the left adrenal gland were unremarkable. - One benign lymph node was visualized in the samantha hepatis region. - No specimens collected. Recommendation: - Perform an ERCP today. Liliane Puentes D.O. Liliane Puentes, 08/23/2022 2:31:00 PM This report has been signed electronically. Note Initiated On: 08/23/2022 1:51 PM Number of Addenda: 0 I attest to the content of the Intraoperative Record and orders documented therein, exceptions below {[id number]}
--- NOTE | 2022-08-23 14:35 | Post Operative Brief Note ---
Immediate Post Op Note v1 Date of Surgery August 23, 2022 Pre & Post Diagnosis Operation Date: 08/23/22 07:00 Pre-Op Diagnosis: CHOLEDOCHOLITHIASIS Post-Op Diagnosis: CHOLEDOCHOLITHIASIS I identified the patient and participated in the time-out.: Yes Procedure Operation Date: 08/23/22 07:00 Actual Procedures p Esophagogastroduodenoscopy - DO arik Elam Endoscopic Ultrasonography Upper - DO arik Elam Endoscopic Retrograde Cholangiopancreato with spincterotomy, dilation, balloon sweep, stent placement - Liliane Puentes DO Surgeon Liliane Puentes DO Online Education Manager none Estimated Blood Loss 0 Findings Consistent with Post-Op Diagnosis
--- NOTE | 2022-08-23 14:35 | GI REPORT ---
Patient Name: Coral Aleman Procedure Date: 08/23/2022 1:52 PM Date of : 1980 Admit Type: Inpatient Age: 41 Gender: Female Attending MD: Liliane Puentes DO, Procedure: ERCP Providers: Liliane Puentes DO Referring MD: Referred Self, Bin Contreras Indications: Abdominal pain of suspected biliary origin, Elevated liver enzymes Medicines: General Anesthesia Complications: No immediate complications. Estimated blood loss: Minimal. Estimated Blood Loss: Estimated blood loss was minimal. Procedure: Pre-Anesthesia Assessment: - Prior to the procedure, a History and Physical was performed, and patient medications, allergies and sensitivities were reviewed. The patient's tolerance of previous anesthesia was reviewed. - The risks and benefits of the procedure and the sedation options and risks were discussed with the patient. All questions were answered and informed consent was obtained. - Patient identification and proposed procedure were verified prior to the procedure by the physician, the nurse and the editorial specialist. The procedure was verified in the procedure room. - Pre-procedure physical examination revealed no contraindications to sedation. - ASA Grade Assessment: III - A patient with severe systemic disease. - After reviewing the risks and benefits, the patient was deemed in satisfactory condition to undergo the procedure. - The anesthesia plan was to use general anesthesia. - Immediately prior to administration of medications, the patient was re-assessed for adequacy to receive sedatives. - The heart rate, respiratory rate, oxygen saturations, blood pressure, adequacy of pulmonary ventilation, and response to care were monitored throughout the procedure. - The physical status of the patient was re-assessed after the procedure. After obtaining informed consent, the scope was passed under direct vision. Throughout the procedure, the patient's blood pressure, pulse, and oxygen saturations were monitored continuously. The Duodenoscope was introduced through the mouth, and advanced to the duodenum and used to inject contrast into the bile duct. The ERCP was accomplished without difficulty. The patient tolerated the procedure well. Findings: The jelly filter tender film was normal. The esophagus was successfully intubated under direct vision without detailed examination of the pharynx, larynx, and associated structures, and upper GI tract. The upper GI tract was grossly normal. The major papilla was normal. The bile duct was deeply cannulated with the short-nosed traction sphincterotome and guidewire. Contrast was injected. I personally interpreted the bile duct images. Contrast extended to the entire biliary tree. The main bile duct was moderately dilated. The largest diameter was 10 mm. The lower third of the main bile duct, middle third of the main bile duct and upper third of the main bile duct contained filling defect(s) thought to be a stone. Biliary sphincterotomy was made with a monofilament Fusion OMNI sphincterotome using ERBE electrocautery. There was no post-sphincterotomy bleeding. The lower third of the main bile duct was successfully dilated with a 10 mm balloon dilator. To discover objects, the biliary tree was swept with a 15 mm balloon starting at the bifurcation. Many (over 20) darkly pigmented stones were removed. No stones remained. One 10 Fr by 9 cm biliary stent with a single external flap and a single internal flap was placed 9 cm into the common bile duct. Bile flowed through the stent. The stent was in good position. The endoscope was withdrawn from the patient. Impression: - Choledocholithiasis was found. Complete removal was accomplished by biliary sphincterotomy and balloon extraction. - One biliary stent was placed into the common bile duct. Recommendation: - Avoid aspirin and nonsteroidal anti-inflammatory medicines for 5 days. - Repeat ERCP in 6- 8 weeks to remove stent. - Cholecystectomy per General Surgery Liliane Puentes D.O. Liliane Puentes DO 08/23/2022 2:34:29 PM This report has been signed electronically. Note Initiated On: 08/23/2022 1:52 PM Number of Addenda: 0 I attest to the content of the Intraoperative Record and orders documented therein, exceptions below {[id number]}
--- NOTE | 2022-08-23 14:36 | Communication Note ---
Date of Service: August 23, 2022 The patient underwent upper endoscopy and endoscopic ultrasound revealing numerous stones within her common bile duct. This was followed by ERCP during which time a biliary sphincterotomy was performed and removal of over 20 gallstones performed. A prophylactic biliary stent was placed. Recommendations Clear Liquid diet today Cholecystectomy per general surgery avoid nonsteroidals for 5 days please Repeat ERCP for biliary stent removal in 6 to 8 weeks. Please call with any questions
--- NOTE | 2022-08-23 15:08 | Fluoroscopy Report ---
[place] ERCP biliary ductal CLINICAL HISTORY: ERCP COMPARISON STUDY: Right upper quadrant ultrasound August 22, 2022. FLUOROSCOPY TIME: 47 seconds. EXPOSURE DOSE: 23.01 mGy FLUOROSCOPIC IMAGES: 8 FINDINGS: Fluoroscopy was provided during ERCP. The common bile duct was cannulated. Filling defects within the common bile duct reflect stones. Balloon sweep through the common duct was performed follo wed by stent placement. IMPRESSION: Fluoroscopy provided during ERCP with biliary stent placement. ACT 112: Negative or not required by law. Electronically signed by: Ilan Curtis M.D. 08/23/2022 3:07 PM
[2022-08-23] MEDS ORDERED: SUGAMMADEX SODIUM 200 MG/2 ML VIAL IV ONE (15:38)
[2022-08-23] MEDS ORDERED: KETOROLAC 30 MG/ML VIAL ONE (15:41)
[2022-08-23] MEDS ORDERED: ACETAMINOPHEN 1,000 MG/100 ML VIAL IV ONE (15:49)
--- NOTE | 2022-08-23 15:49 | Post Operative Brief Note ---
[facility] Immediate Post Op with CF Date of Surgery August 23, 2022 Pre & Post Diagnosis Operation Date: 08/23/22 07:00 Pre-Op Diagnosis: CHOLEDOCHOLITHIASIS Post-Op Diagnosis: CHOLEDOCHOLITHIASIS , severe chronic cholecystitis with adhesions I identified the patient and participated in the time-out.: Yes Procedure Operation Date: 08/23/22 07:00 Actual Procedures p Esophagogastroduodenoscopy - Liliane Puentes DO s Endoscopic Ultrasonography Upper - Liliane Puentes DO s Endoscopic Retrograde Cholangiopancreato with spincterotomy, dilation, balloon sweep, stent placement(Not Applicable) - Liliane Puentes DO p Laparoscopic Cholecystectomy(Not Applicable) - Levy Marie MD, FACS Lysis of adhesions Surgeon Levy Marie MD, FACS Climbing Guide darrell, Anahy Saldivar for lap ailyn Estimated Blood Loss 10 Findings Consistent with Post-Op Diagnosis Patient had a severely scarred gallbladder which was very sclerotic as well as the samantha hepatis Specimens Specimen Description: a) Gallbladder.
[2022-08-23] MEDS ORDERED: PROMETHAZINE HCL INJ 25 MG/ML 1 ML VIAL ONE (16:28)
[2022-08-23] MEDS ORDERED: SODIUM CHLORIDE 0.9% 50 ML BAG ONE (16:28)
[2022-08-23] MEDS ORDERED: PIPERACILLIN/TAZOBACTAM 3.375 GM in DEXTROSE 5% 100 ML IV SCH (17:14)
[2022-08-23] MEDS ORDERED: HYDROmorphone INJ 0.5 MG/0.5 ML SYR IV PRN (17:14)
[2022-08-23] MEDS ORDERED: ALUMINUM/MAGNESIUM SUSP 30 ML UDC PO PRN (17:26)
--- NOTE | 2022-08-23 17:52 | Hospitalist Progress Note ---
Date of Service August 23, 2022 Assessment & Plan (1) Choledocholithiasis: (2) Transaminitis: (3) Elevated bilirubin: (4) Anemia: (5) GERD (gastroesophageal reflux disease): Plan This is a 41-year-old -[place] female who has significant past medical history of reflux who presents to ED secondary to abdominal pain, nausea and vomiting x1 week. Choledocholithiasis Cholelithiasis US:Cholelithiasis and mild gallbladder wall thickening. Mild intra and extrahepatic biliary ductal dilatation CBD 1cm. AST 64, ALT 186, ALP 297, Tbili 1.3 s/p ERCP with removal of CBD Choledocholithiasis, Stent Placement 08/23 stable overall afebrile, no leukocytosis no NSAID, Aspirin x 5 days repeat ERCP 6-8 weeks for stent removal General Surgery on board- awaiting recommendation for possible inpatient cholecystectomy Anemia H&H 11.2 and 34.7 with normal indices Iron panel done as outpatient December 2021 revealed ferritin 58, TSAT 34, TIBC 363 and iron 124 Monitor H&H, recommend further work-up as outpatient Hg 11.2 --> 10.5 no signs of active bleeding GERD IV Pepcid for now DVT PPX: SCDS Dispo: anticipate d/c home when medically stable FULL CODE PCP: PAUL Guadalupe Admission and Anticipated Discharge Date Admission Date: August 22, 2022 Subjective ff up for cholelithiasis, choledocholithiasis, etc seen resting in bed, sitting up very drowsy s/p ERCP nods, answers with some phrases states she is having heartburn no nausea no chest pain, dyspnea, palpitations, dizziness no other symptoms Review of Systems Review of Systems: all noted and negative except for above Physical Exam Physical Exam: General- oriented x 3, not in distress, speaks in sentences with no effort or accessory muscle use Eyes- anicteric Neck- no JVD Lungs- clear breath sounds bilaterally, no rales/wheezes Heart- normal rate, regular rhythm; no murmurs Abdomen- normal bowel sounds, nondistended, soft, mild RUQ tenderness Extremities- no pretibial edema, no calf tenderness Neuro- alert, oriented x 3; no gross focal neurologic deficits Skin- warm & dry Results & Data Results & Data ([facility]) Vital Signs (Past 12 Hours) Vital Signs Temp Pulse Pulse Resp BP Pulse Ox O2 Del Method 08/23/22 17:30 36.8 C 72 18 145/83 H 95 Room Air 08/23/22 17:15 36.9 C 80 18 145/89 H 97 Room Air 08/23/22 17:05 36.7 C 59 L 14 145/87 H 100 Nasal Cannula 08/23/22 16:55 85 16 146/93 H 95 Nasal Cannula 08/23/22 16:45 80 14 155/84 H 97 Room Air 08/23/22 16:35 90 16 154/89 H 93 Room Air 08/23/22 16:25 73 22 141/80 H 100 Oxymask 08/23/22 16:15 78 14 139/86 98 Oxymask 08/23/22 16:08 36.3 C L 85 16 138/80 98 Oxymask 08/23/22 12:34 37 C 79 20 152/96 H 99 Room Air 08/23/22 11:27 36.5 C 66 17 142/86 H 94 Room Air 08/23/22 07:51 37.0 C 72 18 142/84 H 96 Room Air O2 Flow Rate 08/23/22 17:30 08/23/22 17:15 08/23/22 17:05 2 08/23/22 16:55 2 08/23/22 16:45 08/23/22 16:35 08/23/22 16:25 3 08/23/22 16:15 6 08/23/22 16:08 9 08/23/22 12:34 08/23/22 11:27 08/23/22 07:51 all noted and reviewed including below
--- NOTE | 2022-08-23 18:59 | Anesthesiology Progress Note ---
Date of Service August 23, 2022 Anesthesia Post Procedure Vital Signs Vital Signs: Temp Pulse Pulse Resp BP Pulse Ox O2 Del Method 08/23/22 17:59 71 16 141/84 H 94 Room Air 08/23/22 17:30 36.8 C 72 18 145/83 H 95 Room Air 08/23/22 17:15 36.9 C 80 18 145/89 H 97 Room Air 08/23/22 17:05 36.7 C 59 L 14 145/87 H 100 Nasal Cannula 08/23/22 16:55 85 16 146/93 H 95 Nasal Cannula 08/23/22 16:45 80 14 155/84 H 97 Room Air 08/23/22 16:35 90 16 154/89 H 93 Room Air 08/23/22 16:25 73 22 141/80 H 100 Oxymask 08/23/22 16:15 78 14 139/86 98 Oxymask 08/23/22 16:08 36.3 C L 85 16 138/80 98 Oxymask 08/23/22 12:34 37 C 79 20 152/96 H 99 Room Air 08/23/22 11:27 36.5 C 66 17 142/86 H 94 Room Air 08/23/22 07:51 37.0 C 72 18 142/84 H 96 Room Air 08/22/22 22:45 Room Air 08/22/22 22:45 36.7 C 78 16 166/98 H 94 Room Air 08/22/22 22:00 63 18 132/92 97 Room Air 08/22/22 20:29 62 16 126/82 98 Room Air 08/22/22 19:58 70 16 137/101 H 99 Room Air O2 Flow Rate 08/23/22 17:59 08/23/22 17:30 08/23/22 17:15 08/23/22 17:05 2 08/23/22 16:55 2 08/23/22 16:45 08/23/22 16:35 08/23/22 16:25 3 08/23/22 16:15 6 08/23/22 16:08 9 08/23/22 12:34 08/23/22 11:27 08/23/22 07:51 08/22/22 22:45 08/22/22 22:45 08/22/22 22:00 08/22/22 20:29 08/22/22 19:58 Pain Intensity Right Abdomen: Pain Intensity: 7 Transfer of Care Handoff Completed per policy Notes Mental Status: alert / awake / arousable and participated in evaluation Patient Amnestic to Procedure: Yes Nausea / Vomiting: adequately controlled Pain: adequately controlled Airway Patency, RR, SpO2: stable & adequate BP & HR: stable & adequate Hydration State: stable & adequate Anesthetic Complications: no major complications apparent
[2022-08-23] MEDS: oxyCODONE HCL IR 5 MG TAB (IMMEDIATE RELEASE) PO PRN (21:53)
[2022-08-23] MEDS: DOCUSATE SODIUM/SENNA 50/8.6MG TAB PO SCH (21:53)
[2022-08-24] MEDS: PIPERACILLIN/TAZOBACTAM 4.5 GM in DEXTROSE 5% 100 ML IV SCH ×2 (03:00→12:22)
[2022-08-24] MEDS: oxyCODONE HCL IR 5 MG TAB (IMMEDIATE RELEASE) PO PRN ×3 (06:23→20:30)
[2022-08-24] MEDS: FAMOTIDINE 20 MG in SYRINGE 3 ML IV SCH (06:26)
[2022-08-24] MEDS: LACTATED RINGER'S 1,000 ML IV SCH (06:34)
[2022-08-24] MEDS: DOCUSATE SODIUM/SENNA 50/8.6MG TAB PO SCH ×2 (08:40→20:31)
[2022-08-24] MEDS: HEPARIN SOD 5,000 UNIT/0.5 ML VIAL SQ SCH ×2 (08:40→20:31)
[2022-08-24 08:58] LABS: Basophils # (auto) 0.03 K/uL (0-0.2); Basophils % (auto) 0.4 %; Eosinophils # (auto) 0.01 K/uL (0-0.50); Eosinophils % (auto) 0.1 %; Hematocrit (blood only) 32.2 % (37.0-47.0); Hemoglobin 10.2 g/dl (12.0-16.0); Immature Granulocytes # (auto) 0.03 K/uL (0.01-0.20); Immature Granulocytes % (auto) 0.4 %; Lymphocytes # (auto) 1.76 K/uL (1.2-3.4); Lymphocytes % (auto) 23.3 %; Mean Corpuscular Hgb Conc 31.7 g/dL (32.0-36.0); Mean Corpuscular Volume 82.1 fL (80.0-100.0); Mean Platelet Volume 11.4 fL (9.4-12.4); Monocytes # (auto) 0.52 K/uL (0.11-0.59); Monocytes % (auto) 6.9 %; Neutrophils # (auto) 5.19 K/uL (1.40-6.50); Neutrophils % (auto) 68.9 %; Platelet Count 311 K/uL (130-400); RDW Coefficient of Variation 15.6 % (11.5-14.5); RDW Standard Deviation 47.1 fL (36.4-46.3); Red Blood Count 3.92 M/uL (4.20-5.40); White Blood Count 7.54 K/ul (4.8-10.8)
[2022-08-24 09:17] LABS: Albumin Globulin Ratio 0.9 (0.9-2); Albumin Level 3.4 gm/dl (3.4-5.0); BUN Creatinine Ratio 9.4 (10-20); Bilirubin,Total 0.7 mg/dl (0.2-1.0); Calcium 8.7 mg/dl (8.5-10.1); Creatinine Clr Calc Pharmacy 141.1 ml/min; Est GFR (African American) 126.7 ml/min; Est GFR (Non-African American) 109.3 ml/min; Globulin 3.9 gm/dl (2.5-4.0); Potassium 3.9 mmol/L (3.5-5.1); Total Protein 7.3 gm/dl (6.0-8.3)
--- NOTE | 2022-08-24 13:47 | Surgery Progress Note ---
Date of Service August 24, 2022 Assessment & Plan (1) Postoperative follow-up: Plan: Robotic-Assisted Laparoscopic Sigmoidectomy, POD 1 pt is doing fine, pt wants to go home tomorrow, continue treatment, advance diet, will F. /U Admission and Anticipated Discharge Date Admission Date: August 22, 2022 Supervising Physician Co-Signing Physician Notes Saw and evaluated the patient, we were consulted for evaluation signs in the setting of epigastric discomfort. The patient did have imaging notable for cholelithiasis and a dilated common bile duct. She notes that she has had intermittent discomfort over 1.5 weeks. She denies having any fevers chills or sweats. The patient's prior surgical history is notable for hysterectomy but otherwise unremarkable. Physical examination no scleral icterus Right upper quadrant tenderness to palpation 41-year-old female presenting with abdominal pain, imaging is somewhat suggestive of choledocholithiasis given the dilated common bile duct. We will proceed with upper endoscopy endoscopic ultrasound and likely ERCP for biliary decompression. This will then be followed by cholecystectomy with Dr. Marie. I discussed risks and benefits of the endoscopic procedures to include bleeding, infection, perforation, pain, failed biliary cannulation and need for follow-up studies. Subjective ff up for cholelithiasis, choledocholithiasis, etc seen resting in bed, sitting up very drowsy s/p ERCP nods, answers with some phrases states she is having heartburn no nausea no chest pain, dyspnea, palpitations, dizziness no other symptoms 08/24/2022 1:43 PM, DR. Ansari F/Y S/P ERCP, lap ailyn, POD 1 pt is doing fine, no significant abdominal pain, no fever, tolerated clear diet, Physical Exam Constitutional: WD/WN, vitals as above Eyes: PERRL, conjunctivae normal, anicteric sclerae Neck: trachea midline, no thyromegaly Respiratory: normal respiratory effort, lungs clear to auscultation Cardiovascular: RRR, no murmur, no edema Gastrointestinal (Abdomen): soft, mild tenderness at incision site, no rebound pain, no distend, all incision intact, no redness, BS +, Neurologic: patellar DTR's 2+ bilat, sensation intact Psychiatric: A+Ox3, euthymic affect Results & Data ([facility]) Vital Signs (Past 12 Hours) Vital Signs Temp Pulse Resp BP Pulse Ox O2 Del Method 08/24/22 07:32 36.4 C L 53 L 16 130/81 94 Room Air 08/24/22 03:00 36.4 C L 60 18 134/81 96 Room Air Laboratory Results Abnormal lab results 08/24/22 08/24/22 Range/Units 08:26 08:26 RBC 3.92 L (4.20-5.40) M/uL Hgb 10.2 L (12.0-16.0) g/dl Hct 32.2 L (37.0-47.0) % MCHC 31.7 L (32.0-36.0) g/dL RDW Std Deviation 47.1 H (36.4-46.3) fL RDW Coeff of Preston 15.6 H (11.5-14.5) % BUN/Creatinine Ratio 9.4 L (10-20) Glucose 115 H (70-99(Fasting)) mg/dl AST 91 H (13-39) U/L ALT 163 H (7-52) U/L Alkaline Phosphatase 252 H (34-104) U/L
[2022-08-24] MEDS: FAMOTIDINE 20 MG TAB PO SCH (20:31)
[2022-08-24] MEDS ORDERED: ONDANSETRON 4 MG OD TAB PO PRN (20:53)
[2022-08-24] MEDS ORDERED: SODIUM CHLORIDE 0.9% 1000ML 1,000 ML IV ONE (20:54)
[2022-08-25] MEDS: oxyCODONE HCL IR 5 MG TAB (IMMEDIATE RELEASE) PO PRN (05:55)
[2022-08-25] MEDS ORDERED: COUGH DROP (SUGAR FREE) LOZ 24 LOZ/1 BOX BUCCAL ONE (05:57)
[2022-08-25 06:40] LABS: Albumin Globulin Ratio 0.9 (0.9-2); Albumin Level 3.3 gm/dl (3.4-5.0); BUN Creatinine Ratio 12.1 (10-20); Bilirubin,Total 0.5 mg/dl (0.2-1.0); Calcium 8.5 mg/dl (8.5-10.1); Creatinine Clr Calc Pharmacy 136.8 ml/min; Est GFR (African American) 125.4 ml/min; Est GFR (Non-African American) 108.2 ml/min; Globulin 3.6 gm/dl (2.5-4.0); Potassium 3.9 mmol/L (3.5-5.1); Total Protein 6.9 gm/dl (6.0-8.3)
[2022-08-25] MEDS: FAMOTIDINE 20 MG TAB PO SCH ×2 (08:11→20:40)
[2022-08-25] MEDS: AMOXICILLIN/CLAVULANATE 875 MG TAB PO SCH ×2 (08:11→18:15)
[2022-08-25] MEDS: DOCUSATE SODIUM/SENNA 50/8.6MG TAB PO SCH ×2 (08:11→20:39)
[2022-08-25] MEDS: HEPARIN SOD 5,000 UNIT/0.5 ML VIAL SQ SCH ×2 (08:12→20:40)
[2022-08-25] MEDS ORDERED: FIRST - Mouthwash BLM 5 ML UDP PO ONE (11:58)
[2022-08-25] MEDS: ACETAMINOPHEN 325 MG TAB PO SCH ×2 (12:47→20:39)
--- NOTE | 2022-08-25 14:45 | Surgery Progress Note ---
Date of Service August 25, 2022 Assessment & Plan (1) Postoperative follow-up: Plan: Robotic-Assisted Laparoscopic Sigmoidectomy, POD 1 pt is doing fine, pt wants to go home tomorrow, continue treatment, advance diet, will F/U 08/25/2022 2:44PM Robotic-Assisted Laparoscopic Sigmoidectomy, POD 2 pt is doing fine, tolerated diet pt wants to go home tomorrow, Admission and Anticipated Discharge Date Admission Date: August 22, 2022 Supervising Physician Co-Signing Physician Notes Saw and evaluated the patient, we were consulted for evaluation signs in the setting of epigastric discomfort. The patient did have imaging notable for cholelithiasis and a dilated common bile duct. She notes that she has had in termittent discomfort over 1.5 weeks. She denies having any fevers chills or sweats. The patient's prior surgical history is notable for hysterectomy but otherwise unremarkable. Physical examination no scleral icterus Right upper quadrant tenderness to palpation 41-year-old female presenting with abdominal pain, imaging is somewhat suggestive of choledocholithiasis given the dilated common bile duct. We will proceed with upper endoscopy endoscopic ultrasound and likely ERCP for biliary decompression. This will then be followed by cholecystectomy with Dr. Marie. I discussed risks and benefits of the endoscopic procedures to include bleeding, infection, perforation, pain, failed biliary cannulation and need for follow-up studies. Subjective ff up for cholelithiasis, choledocholithiasis, etc seen resting in bed, sitting up very drowsy s/p ERCP nods, answers with some phrases states she is having heartburn no nausea no chest pain, dyspnea, palpitations, dizziness no other symptoms 08/24/2022 1:43 PM, DR. Ansari F/U S/P ERCP, lap ailyn, POD 1 pt is doing fine, no significant abdominal pain, no fever, tolerated clear diet, 08/25/2022 2:43 PM, DR. Ansari F/U S/P ERCP, lap ailyn, POD 2 pt is doing fine, mild periumbilical incision pain, no fever, tolerated clear diet, Physical Exam Constitutional: WD/WN, vitals as above Eyes: PERRL, conjunctivae normal, anicteric sclerae Neck: trachea midline, no thyromegaly Respiratory: normal respiratory effort, lungs clear to auscultation Cardiovascular: RRR, no murmur, no edema Gastrointestinal (Abdomen): soft, mild tenderness at incision sites, no rebound, all incisions intact, no redness, Neurologic: patellar DTR's 2+ bilat, sensation intact Psychiatric: A+Ox3, euthymic affect Results & Data ([facility]) Vital Signs (Past 12 Hours) Vital Signs Temp Pulse Resp BP Pulse Ox O2 Del Method 08/25/22 14:20 36.8 C 66 16 102/67 96 Room Air 08/25/22 07:49 36.5 C 70 16 107/72 94 Room Air Laboratory Results Abnormal lab results 08/25/22 Range/Units 06:01 Glucose 102 H (70-99(Fasting)) mg/dl AST 68 H (13-39) U/L ALT 144 H (7-52) U/L Alkaline Phosphatase 208 H (34-104) U/L Albumin 3.3 L (3.4-5.0) gm/dl
--- NOTE | 2022-08-25 14:55 | Hospitalist Progress Note ---
Date of Service August 25, 2022 delayed entry date of service 08/24/22 Assessment & Plan (1) Cholelithiasis: (2) Choledocholithiasis: Plan: (1) Choledocholithiasis: (2) Transaminitis: (3) Elevated bilirubin: (4) Anemia: (5) GERD (gastroesophageal reflux disease): Plan This is a 41-year-old -[place] female who has significant past medical history of reflux who presents to ED secondary to abdominal pain, nausea and vomiting x1 week. Choledocholithiasis Cholelithiasis US:Cholelithiasis and mild gallbladder wall thickening. Mild intra and extrahepatic biliary ductal dilatation CBD 1cm. AST 64, ALT 186, ALP 297, Tbili 1.3 s/p ERCP with removal of CBD Choledocholithiasis, Stent Placement 08/23 Remained stable, but still having significant right upper quadrant postoperative pain Continue pain control Advance diet per general surgery no NSAID, Aspirin x 5 days repeat ERCP 6-8 weeks for stent removal General Surgery on board- awaiting recommendation for possible inpatient cholecystectomy Anemia H&H 11.2 and 34.7 with normal indices Iron panel done as outpatient December 2021 revealed ferritin 58, TSAT 34, TIBC 363 and iron 124 Monitor H&H, recommend further work-up as outpatient Hg 11.2 --> 10.5 no signs of active bleeding GERD IV Pepcid for now DVT PPX:SCDS Dispo: anticipate d/c home when medically stable FULL CODE PCP: PAUL Guadalupe Admission and Anticipated Discharge Date Admission Date: August 22, 2022 Subjective Follow-up for choledocholithiasis, cholelithiasis, etc. Seen resting in bed, sleeping but easily awakened Not in distress but reports right upper and lower quadrant pain No nausea or vomiting No fevers or chills no chest pain, dyspnea, palpitations, dizziness Review of Systems Review of Systems: all noted and negative except for above Physical Exam Physical Exam: General- oriented x 3, not in distress, speaks in sentences with no effort or accessory muscle use Eyes- anicteric Neck- no JVD Lungs- clear BS bilaterally, no rales/wheezes Heart- normal rate, regular rhythm; no murmurs Abdomen- normal bowel sounds, nondistended, soft, positive right upper quadrant tenderness Extremities- no pretibial edema, no calf tenderness Neuro- alert, oriented x 3; no gross focal neurologic deficits Skin- warm & dry Results & Data Results & Data ([facility]) Vital Signs (Past 12 Hours) Vital Signs Temp Pulse Resp BP Pulse Ox O2 Del Method 08/25/22 14:20 36.8 C 66 16 102/67 96 Room Air 08/25/22 07:49 36.5 C 70 16 107/72 94 Room Air all noted and reviewed including below
--- NOTE | 2022-08-25 14:57 | Hospitalist Progress Note ---
Date of Service August 25, 2022 Assessment & Plan (1) Cholelithiasis: (2) Choledocholithiasis: Plan: (1) Choledocholithiasis: (2) Transaminitis: (3) Elevated bilirubin: (4) Anemia: (5) GERD (gastroesophageal reflux disease): Plan This is a 41-year-old -[place] female who has significant past medical history of reflux who presents to ED secondary to abdominal pain, nausea and vomiting x1 week. Choledocholithiasis Cholelithiasis US:Cholelithiasis and mild gallbladder wall thickening. Mild intra and extrahepatic biliary ductal dilatation CBD 1cm. AST 64, ALT 186, ALP 297, Tbili 1.3 s/p ERCP with removal of CBD Choledocholithiasis, Stent Placement / Still having pain today But tolerating diet well, positive BMs LFTs trending down gradually Continue pain control, declines IV medications at this point We will add heating pad, Tylenol scheduled Continue Augmentin p.o. twice daily no NSAID, Aspirin x 5 days repeat ERCP 6-8 weeks for stent removal General Surgery on board- awaiting recommendation for possible inpatient cholecystectomy Anemia H&H 11.2 and 34.7 with normal indices Iron panel done as outpatient December 2021 revealed ferritin 58, TSAT 34, TIBC 363 and iron 124 Monitor H&H, recommend further work-up as outpatient Hg 11.2 --> 10 no signs of active bleeding GERD Pepcid BID DVT PPX:SCDS Dispo: anticipate d/c home when medically stable FULL CODE PCP: PAUL Guadalupe Admission and Anticipated Discharge Date Admission Date: August 22, 2022 Subjective Follow-up for cholelithiasis, etc. Seen resting in bed, not in distress, sleeping but easily awakened States that she is still having pain in the right quadrants, about the same as yesterday Tolerating soft diet, no nausea or vomiting, positive BMs No fevers or chills No other new symptoms Review of Systems Review of Systems: all noted and negative except for above Physical Exam Physical Exam: General- oriented x 3, not in distress, speaks in sentences with no effort or accessory muscle use Eyes- anicteric Neck- no JVD Lungs- clear breath sounds bilaterally, no rales/wheezes Heart- normal rate, regular rhythm; no murmurs Abdomen- normal bowel sounds, nondistended, soft, positive mild to moderate tenderness on the lower quadrant Lap ailyn sites healing well Extremities- no pretibial edema, no calf tenderness Neuro- alert, oriented x 3; no gross focal neurologic deficits Skin- warm & dry Results & Data Results & Data ([facility]) Vital Signs (Past 12 Hours) Vital Signs Temp Pulse Resp BP Pulse Ox O2 Del Method 08/25/22 14:20 36.8 C 66 16 102/67 96 Room Air 08/25/22 07:49 36.5 C 70 16 107/72 94 Room Air all noted and reviewed including below
--- NOTE | 2022-08-26 06:29 | Surgery Progress Note ---
Date of Service August 26, 2022 Assessment & Plan (1) S/P laparoscopic cholecystectomy: Plan: On 08/23/2022 patient underwent ERCP and then immediately following that She underwent laparoscopic cholecystectomy-this showed a very severely scarred gallbladder consistent with severe chronic cholecystitis with adhesions Okay for discharge home from surgical standpoint Pain med and antibiotic written for and discharge Follow-up surgery 2 to 3 weeks Follow-up GI team as ordered Admission and Anticipated Discharge Date Admission Date: August 22, 2022 Results & Data ([facility]) Vital Signs (Past 12 Hours) Vital Signs Temp Pulse Resp BP Pulse Ox O2 Del Method 08/25/22 21:49 36.9 C 76 18 129/69 96 Room Air PG Care Time/CCT Total # of Minutes Spent Total Time Spent with Patient: Total time spent is greater than 50% in coordination of care (as documented) at patient's floor/unit and/or counseling patient: Coding Level of Care Code 89008 Post Operative Follow-Up Diagnoses S/P laparoscopic cholecystectomy Z90.49
--- NOTE | 2022-08-26 06:57 | Operative Report (OR) ---
DATE OF OPERATION: 08/23/2022. NAME OF OPERATION: Laparoscopic cholecystectomy with lysis of adhesions. This was a difficult opera tion. Please add difficult modifier. STAFF SURGEON: Levy Marie MD. PARTY PLAN SALESPERSON: Kym Saldivar PA-C. ANESTHESIA: General. DESCRIPTION OF PROCEDURE: The patient was brought in the operating room and placed on the operating table in supine position. She had undergone ERCP. She was in the supine position. Her abdomen was p repped and draped in the usual fashion. A 0.5% plain Marcaine was used to anesthetize all incisions. Incision was made above the umbilicus, carrying dissection down through significant adipose tissue to the fascia, placing a Veress needle producing pneumoperitoneum. Under visualization, three 5 mm p orts were placed, one cephalad and two laterally. Gallbladder was severely scarred with adhesions to the gallbladder. These were taken down and then the gallbladder observed. It was very sclerotic do wn into the samantha hepatis, very difficult to retract. I did have to make a small opening in the gall bladder to grasp it and then retracted the gallbladder, identifying the cystic duct and cystic artery . These were clipped and transected and then the gallbladder dissected away from the liver bed throu gh significant scar tissue, it was placed in an Endobag. After appropriate hemostasis and irrigation , the Endobag was removed through the umbilical site. I did have to enlarge the fascial defect to re move the gallbladder because of its size. At this point, the fascia was closed at the umbilicus usin g 0 PDS suture. All incisions closed using subcuticular 4-0 Monocryl with Dermabond. The patient wa s transferred to recovery room in stable condition. My assistant family teacher helped with prepping, draping, removal of the gallbladder and closure of the wounds. Job ID: [id number]
[2022-08-26] MEDS: oxyCODONE HCL IR 5 MG TAB (IMMEDIATE RELEASE) PO PRN ×2 (08:15→19:07)
[2022-08-26] MEDS: FAMOTIDINE 20 MG TAB PO SCH ×2 (08:15→20:40)
[2022-08-26] MEDS: HEPARIN SOD 5,000 UNIT/0.5 ML VIAL SQ SCH ×2 (08:15→20:40)
[2022-08-26] MEDS: DOCUSATE SODIUM/SENNA 50/8.6MG TAB PO SCH ×2 (08:15→20:40)
[2022-08-26] MEDS: ACETAMINOPHEN 325 MG TAB PO SCH ×3 (08:16→20:40)
[2022-08-26] MEDS: AMOXICILLIN/CLAVULANATE 875 MG TAB PO SCH ×2 (08:16→17:10)
--- NOTE | 2022-08-26 08:30 | Operative Report (OR) ---
DATE OF OPERATION: 08/23/2022. NAME OF OPERATION: Laparoscopic cholecystectomy with lysis of adhesions. PREOPERATIVE DIAGNOSIS: Acute cholecystitis. POSTOPERATIVE DIAGNOSIS: Acute cholecystitis with severe chronic cholecystitis and sclerosis with ad hesions. STAFF SURGEON: Levy Marie MD. REGIONAL INTERMODAL TRUCK DRIVER: Kym Saldivar PA-C. ANESTHESIA: General. DESCRIPTION OF PROCEDURE: The patient was brought in the operating room and placed on the operating table in supine position. Her abdomen was prepped and draped in the usual fashion. My title i instructional assistant hel ped with prepping, draping, removal of gallbladder, and closure of the wound. Incision was made abov e the umbilicus, carrying dissection down through significant adipose tissue to the fascia, placing a Veress needle, producing pneumoperitoneum. Three 5 mm ports were then placed after the 11 port pass ed. Under visualization, three 5 mm ports were placed, one cephalad and two laterally. There were a dhesions to the gallbladder. The gallbladder was severely sclerotic and scarred, consistent with sev ere chronic cholecystitis. I actually made a small opening in the upper part of the gallbladder to g rasp the gallbladder because it was so scarred. There was some fluid, which was aspirated. Dissecti on was then carried out at the samantha hepatis with some difficulty secondary to retraction, but the cy stic duct and cystic artery were identified. There was also sclerosis of the samantha hepatis. These w ere clipped and transected. The gallbladder was then dissected away from the liver bed and placed in an Endobag. After appropriate irrigation and hemostasis, the Endobag was removed through the umbili danish site. I had to enlarge the fascial defect because of the size of the gallbladder. Fascia closed at the umbilicus using 0 PDS sutures, skin was reapproximated using subcuticular 4-0 Monocryl and Awais mabond. The patient was transferred to recovery room in stable condition. Very difficult operation, . Job ID: [id number]
[2022-08-26 09:13] LABS: Albumin Level 3.6 gm/dl (3.4-5.0); BUN Creatinine Ratio 14.5 (10-20); Bilirubin,Total 0.5 mg/dl (0.2-1.0); Calcium 8.6 mg/dl (8.5-10.1); Creatinine Clr Calc Pharmacy 164.2 ml/min; Est GFR (African American) 133.1 ml/min; Est GFR (Non-African American) 114.9 ml/min; Globulin 3.5 gm/dl (2.5-4.0); Potassium 4.1 mmol/L (3.5-5.1); Total Protein 7.1 gm/dl (6.0-8.3)
--- NOTE | 2022-08-26 14:17 | Hospitalist Progress Note ---
Date of Service August 26, 2022 Assessment & Plan (1) Cholelithiasis: (2) Choledocholithiasis: Plan: (1) Choledocholithiasis: (2) Transaminitis: (3) Elevated bilirubin: (4) Anemia: (5) GERD (gastroesophageal reflux disease): Plan This is a 41-year-old -[place] female who has significant past medical history of reflux who presents to ED secondary to abdominal pain, nausea and vomiting x1 week. Choledocholithiasis Cholelithiasis US:Cholelithiasis and mild gallbladder wall thickening. Mild intra and extrahepatic biliary ductal dilatation CBD 1cm. AST 64, ALT 186, ALP 297, Tbili 1.3 s/p ERCP with removal of CBD Choledocholithiasis, Stent Placement 2/10 Still having pain today, improving but still 5/10 tolerating diet well, positive BMs LFTs trending down gradually Continue pain control, declines IV medications at this point heating pad, Tylenol scheduled Continue Augmentin p.o. twice daily no NSAID, Aspirin x 5 days repeat ERCP 6-8 weeks for stent removal Anemia H&H 11.2 and 34.7 with normal indices Iron panel done as outpatient December 2021 revealed ferritin 58, TSAT 34, TIBC 363 and iron 124 Monitor H&H, recommend further work-up as outpatient Hg 11.2 --> 10 no signs of active bleeding GERD Pepcid BID DVT PPX:SCDS Dispo: anticipate d/c home when medically stable FULL CODE PCP: PAUL Guadalupe Admission and Anticipated Discharge Date Admission Date: August 22, 2022 Subjective ff up for cholelithiasis, etc seen resting in bed, not in distress reports RUQ improving gradually, 5 from 10 no nausea/vomiting (+) BMs no fever/chills no other symptoms Review of Systems Review of Systems: all noted and negative except for above Physical Exam Physical Exam: General- oriented x 3, not in distress, speaks in sentences with no effort or accessory muscle use Eyes- anicteric Neck- no JVD Lungs- clear BS BL Heart- normal rate, regular rhythm; no murmurs Abdomen- normal bowel sounds, nondistended, soft, mild moderate RUQ tenderness Extremities- no pretibial edema, no calf tenderness Neuro- alert, oriented x 3; no gross focal neurologic deficits Skin- warm & dry Results & Data Results & Data ([facility]) Vital Signs (Past 12 Hours) Vital Signs Temp Pulse Pulse Resp BP Pulse Ox O2 Del Method 08/26/22 11:11 36.9 C 74 17 145/102 H 95 Room Air 08/26/22 07:46 36.8 C 62 17 139/81 96 Room Air 08/26/22 06:55 36.5 C 69 16 122/83 94 Room Air all noted and reviewed including below
[2022-08-27 09:08] LABS: Albumin Globulin Ratio 0.9 (0.9-2); Albumin Level 3.5 gm/dl (3.4-5.0); BUN Creatinine Ratio 17.5 (10-20); Bilirubin,Total 0.4 mg/dl (0.2-1.0); Calcium 8.9 mg/dl (8.5-10.1); Creatinine Clr Calc Pharmacy 158.4 ml/min; Est GFR (African American) 131.6 ml/min; Est GFR (Non-African American) 113.5 ml/min; Globulin 3.8 gm/dl (2.5-4.0); Total Protein 7.3 gm/dl (6.0-8.3)
[2022-08-27] MEDS: FAMOTIDINE 20 MG TAB PO SCH (09:24)
[2022-08-27] MEDS: oxyCODONE HCL IR 5 MG TAB (IMMEDIATE RELEASE) PO PRN (09:24)
[2022-08-27] MEDS: AMOXICILLIN/CLAVULANATE 875 MG TAB PO SCH (09:25)
[2022-08-27] MEDS: ACETAMINOPHEN 325 MG TAB PO SCH (09:26)
[2022-08-27] MEDS: DOCUSATE SODIUM/SENNA 50/8.6MG TAB PO SCH (09:26)
[2022-08-27] MEDS: HEPARIN SOD 5,000 UNIT/0.5 ML VIAL SQ SCH (09:26)
--- NOTE | 2022-08-27 12:24 | Hospitalist Progress Note ---
Date of Service August 27, 2022 delayed entry date of service noted above Assessment & Plan (1) Cholelithiasis: (2) Choledocholithiasis: Plan: (1) Choledocholithiasis: (2) Transaminitis: (3) Elevated bilirubin: (4) Anemia: (5) GERD (gastroesophageal reflux disease): Plan This is a 41-year-old -[place] Citizen female who has significant past medical history of reflux who presents to ED secondary to abdominal pain, nausea and vomiting x1 week. Choledocholithiasis Cholelithiasis US:Cholelithiasis and mild gallbladder wall thickening. Mild intra and extrahepatic biliary ductal dilatation CBD 1cm. AST 64, ALT 186, ALP 297, Tbili 1.3 s/p ERCP with removal of CBD Choledocholithiasis, Stent Placement / Pain improved gradually Cleared for discharge by general surgery Continue Augmentin p.o. twice daily no NSAID, Aspirin x 5 days repeat ERCP 6-8 weeks for stent removal Anemia H&H 11.2 and 34.7 with normal indices Iron panel done as outpatient December 2021 revealed ferritin 58, TSAT 34, TIBC 363 and iron 124 Monitor H&H, recommend further work-up as outpatient Hg 11.2 --> 10 no signs of active bleeding GERD Pepcid BID DVT PPX:SCDS Dispo: anticipate d/c home when medically stable FULL CODE PCP: PAUL Guadalupe plan of care discussed with patient in detail and at length all questions answered she is understanding, agreeable, comfortable with the plan of care Admission and Anticipated Discharge Date Admission Date: August 22, 2022 Subjective Follow-up for cholelithiasis, choledocholithiasis, etc. Seen resting in bed Comfortable, not in distress States she feels much better overall Abdominal pain much better, more manageable No nausea or vomiting Tolerating diet well No fevers or chills No other symptoms States she is and would like to be discharge Review of Systems Review of Systems: all noted and negative except for above Physical Exam Physical Exam: General- oriented x 3, not in distress, speaks in sentences with no effort or accessory muscle use Eyes- anicteric Neck- no JVD Lungs- clear breath sounds bilaterally, no rales/wheezes Heart- normal rate, regular rhythm; no murmurs Abdomen- normal bowel sounds, nondistended, soft, nontender Extremities- no pretibial edema, no calf tenderness Neuro- alert, oriented x 3; no gross focal neurologic deficits Skin- warm & dry Results & Data Results & Data ([facility]) Vital Signs (Past 12 Hours) Vital Signs Temp Pulse Resp BP BP Pulse Ox O2 Del Method 08/27/22 11:01 36.6 C 76 15 134/89 96 Room Air 08/27/22 07:36 36.6 C 89 14 129/80 95 Room Air all noted and reviewed including below
--- NOTE | 2022-09-10 19:17 | Discharge Summary ---
Discharge Summary Date of Service September 10, 2022 delayed entry date of service noted above Notes For Next Care Provider Medication Changes From Visit Augmentin 875 twice daily Oxycodone- as needed for pain Irisot S Admission HPI Per Admitting Provider This is a 41-year-old -[place] female who has significant past medical history of reflux who presents to ED secondary to abdominal pain, nausea and vomiting x1 week. Patient states over the last week she has had intermittent nausea and vomiting. She attributed this to her usual reflux however was much worse. She further complained of epigastric discomfort that radiated to her right upper quadrant. Pain would come and go, nothing made better or worse she has never experienced this before. She presented to ED today with her 2 children at bedside. She denies any recent fever, chills, sweats, lightheadedness, dizziness, chest pain, shortness breath, URI symptoms, hematemesis, diarrhea or melena. Her last bowel movement was 2 to 3 days ago. She denies any difficulty with urination. In ED patient was found to have a transaminitis with AST 64, ALT 186, ALP 297 and total bili of 1.3. She was afebrile and had no leukocytosis. Her lipase was WNL. She does have anemia at 11.2 and 34.7 with normal indices. Ultrasound suggested cholelithiasis with a CBD of 1 cm and I HDD which raise concern for possible choledocholithiasis. ED provider discussed with GI who recommended admission for EUS and ERCP. Initially patient declined due to having several children at home and unable to find childcare, but eventually she was able to find childcare and wished to be admitted. Admission Exam Per Admitting Provider General- oriented x 3, not in distress, speaks in sentences with no effort or accessory muscle use Eyes- anicteric Neck- no JVD Lungs- clear breath sounds bilaterally, no rales/wheezes Heart- normal rate, regular rhythm; no murmurs Abdomen- normal bowel sounds, nondistended, soft, nontender Extremities- no pretibial edema, no calf tenderness Neuro- alert, oriented x 3; no gross focal neurologic deficits Skin- warm & dry Principal Dx & Hospital Course #1 = Principal Diagnosis (1) Cholelithiasis: (2) Choledocholithiasis: (1) Choledocholithiasis: (2) Transaminitis: (3) Elevated bilirubin: (4) Anemia: (5) GERD (gastroesophageal reflux disease): Plan This is a 41-year-old -[place] female who has significant past medical history of reflux who presents to ED secondary to abdominal pain, nausea and vomiting x1 week. Choledocholithiasis Cholelithiasis US:Cholelithiasis and mild gallbladder wall thickening. Mild intra and extrahepatic biliary ductal dilatation CBD 1cm. AST 64, ALT 186, ALP 297, Tbili 1.3 s/p ERCP with removal of CBD Choledocholithiasis, Stent Placement 08/23 Patient experienced significant pain after surgery, but improved gradually Cleared for discharge by general surgery Continue Augmentin p.o. twice daily Continue oxycodone as needed Senokot-S daily no NSAID, Aspirin x 5 days repeat ERCP 6-8 weeks for stent removal Follow-up with general surgery in 1 week PCP in 1 week Anemia H&H 11.2 and 34.7 with normal indices Iron panel done as outpatient December 2021 revealed ferritin 58, TSAT 34, TIBC 363 and iron 124 Monitor H&H, recommend further work-up as outpatient Hg 11.2 --> 10 no signs of active bleeding GERD Pepcid BID DVT PPX:SCDS Dispo: anticipate d/c home when medically stable FULL CODE PCP: PAUL Guadalupe plan of care discussed with patient in detail and at length all questions answered she is understanding, agreeable, comfortable with the plan of care Discharge Exam General- oriented x 3, not in distress, speaks in sentences with no effort or accessory muscle use Eyes- anicteric Neck- no JVD Lungs- clear breath sounds bilaterally, no rales/wheezes Heart- normal rate, regular rhythm; no murmurs Abdomen- normal bowel sounds, nondistended, soft, nontender Extremities- no pretibial edema, no calf tenderness Neuro- alert, oriented x 3; no gross focal neurologic deficits Skin- warm & dry Updated Medication List Medication Instructions Recorded Confirmed Type famotidine 20 mg tablet 20 mg PO BID 30 days #60 tabs 08/25/22 09/06/22 Rx Hospital Stay Data Consultations 08/22/22 18:25 ED Decision to Admit Stat 08/22/22 18:53 Consult Gastroenterology Routine Consult General Surgery Routine Procedures Performed Operation Date: 08/23/22 07:00 Actual Procedures s Endoscopic Ultrasonography Upper - Marten B. Puentes, DO s Endoscopic Retrograde Cholangiopancreato with spincterotomy, dilation, balloon sweep, stent placement(Not Applicable) - Liliane Puentes, DO p Laparoscopic Cholecystectomy(Not Applicable) - Levy Marie MD, FACS p Esophagogastroduodenoscopy - Liliane Puentes, Diagnostic Imagining Performed 08/22/22 10:55 US gallbladder Stat 08/23/22 [place] ERCP biliary ductal Routine 08/23/22 12:09 US upper EUS PACS images Routine Pending Results Patient Have Any Pending Studies at Discharge: No Discharge Instructions Given to Patient (Per Discharging Provider) SPECIAL CARE INSTRUCTIONS: * Cover incisions and change daily for comfort/drainage. * May use ibuprofen for pain as tolerated. * Expect some swelling and bruising. Call your doctor if: * Temperature above 101 degrees * Pain not relieved by pain medicine ordered * There is increased drainage or redness from any incision * You have any unanswered questions or concerns [phone]. FOLLOW UP VISIT: If not already scheduled, please call the office for a follow-up visit. OFFICE PHONE NUMBER: Dr. Marie Office PLEASE REFER TO YOUR NEW MEDICATION LIST AND FOLLOW INSTRUCTIONS CAREFULLY. YOUR NEW MEDICATIONS INCLUDE: Augmentin- antibiotic Oxycodone- as needed for pain, no driving while taking this medication Senokot S- laxative, stop if you experience diarrhea Drink plenty of water. PLEASE CALL YOUR PRIMARY CARE PHYSICIAN OR RETURN TO THE ER IF WITH WORSENING OF SYMPTOMS, INCLUDING abdominal pain, nausea/vomiting, fever/chills, weakness, etc FOLLOW UP WITH GENERAL SURGEON DR. MARIE/NITA BARTH SCHEDULED ABOVE. YOU NEED TO FOLLOW UP WITH J[facility] DR. PUENTES IN 6-8 WEEKS FOR BILIARY DUCT STENT REMOVAL. PLEASE CALL HIS OFFICE FOR AN APPOINTMENT. CONTACT INFORMATION OUTLINED ABOVE. FOLLOW UP WITH PRIMARY CARE PHYSICIAN OUTLINED ABOVE. Total Time Total Time Spent Total Time Spent (In Minutes): > 30 minutes
== END 2022-08-27 14:42 | disposition home or self-care (01) | DRG 419 ==
LOC: ED 10:03 → 3W 18:28 → SUATTDRO 18:28 → 3W 22:21